=== PATIENT | male | born 1980 | race Caucasian/White ===

== ENCOUNTER 2019-09-01 15:09 | Emergency (ER) | payer MEDICARE, OTHER ==
[2019-09-01 15:34] VITALS: TEMP 97.6
--- NOTE | 2019-09-01 16:36 | ED ---
General Adult HPI - General Chief complaint: Psychiatric Symptoms Stated complaint: Mental Health Time Seen by Provider: 09/01/19 16:00 Source: patient, RN notes reviewed, old records reviewed Mode of arrival: ambulatory Limitations: no limitations - History of Present Illness Initial comments: This is a 39-year-old male who presents emergency Department complaining of being much more explosive and yelling at everyone. Patient states he takes care of 3 children of his and he was yelling at them today and he went over to his parents also started yelling at them. Parents noticed something was wrong and he told him he's been out of his medication for 5 days per patient states takes medication for his mood and something for his headaches but he doesn't know what it is. Patient thought he didn't need these meds so he didn't get them refilled 5 days ago. Patient states he is not homicidal or suicidal but he does agree cannot control his emotions and so he thinks he needs to be admitted to the hospital until he can get back on his medications. Patient denies any physical complaints today. Patient denies any headache patient denies numbness weakness. Patient denies any fever chills or cough. Patient denies any chest pain or difficulty breathing. - Related Data Allergies Allergy/AdvReac Type Severity Reaction Status Date / Time No Known Allergies Allergy Verified 09/01/19 15:30 Review of Systems ROS Statement: Those systems with pertinent positive or pertinent negative responses have been documented in the HPI. ROS Other: All systems not noted in ROS Statement are negative. Past Medical History Past Medical History: No Reported History History of Any Multi-Drug Resistant Organisms: None Reported Past Surgical History: No Surgical Hx Reported Past Psychological History: Anxiety, Bipolar, PTSD Smoking Status: Current every day smoker Past Alcohol Use History: None Reported Past Drug Use History: Marijuana General Exam - General Exam Comments Initial Comments: GENERAL: Patient is well-developed and well-nourished. Patient is nontoxic and well- hydrated and is in mild distress. ENT: Neck is soft and supple. No significant lymphadenopathy is noted. Oropharynx is clear. Moist mucous membranes. Neck has full range of motion without eliciting any pain. EYES: The sclera were anicteric and conjunctiva were pink and moist. Extraocular movements were intact and pupils were equal round and reactive to light. Eyelids were unremarkable. PULMONARY: Unlabored respirations. Good breath sounds bilaterally. No audible rales rhonchi or wheezing was noted. CARDIOVASCULAR: There is a regular rate and rhythm without any murmurs gallops or rubs. ABDOMEN: Soft and nontender with normal bowel sounds. SKIN: Skin is clear with no lesions or rashes and otherwise unremarkable. NEUROLOGIC: Patient is alert and oriented x3. Cranial nerves II through XII are grossly intact. Motor and sensory are also intact. Normal speech, volume and content. Symmetrical smile. MUSCULOSKELETAL: Normal extremities with adequate strength and full range of motion. LYMPHATICS: No significant lymphadenopathy is noted PSYCHIATRIC: The patient states he is having quite a few angry loud outbursts at different people. I suicidal homicidal ideations. Limitations: no limitations Course Vital Signs 09/01/19 15:30 Temperature 97.6 F Pulse Rate 80 Respiratory 18 Rate Blood Pressure 113/73 O2 Sat by Pulse 99 Oximetry Medical Decision Making - Medical Decision Making EPS went and evaluated the patient and developed a safety plan that the patient was in agreement with and he will follow-up as an outpatient. - Lab Data Lab Results 09/01/19 Range/Units 16:30 Urine Opiates Screen Not Detected (NotDetected) Ur Oxycodone Screen Not Detected (NotDetected) Urine Methadone Screen Not Detected (NotDetected) Ur Propoxyphene Screen Not Detected (NotDetected) Ur Barbiturates Screen Not Detected (NotDetected) U Tricyclic Antidepress Not Detected (NotDetected) Ur Phencyclidine Scrn Not Detected (NotDetected) Ur Amphetamines Screen Not Detected (NotDetected) U Methamphetamines Scrn Not Detected (NotDetected) U Benzodiazepines Scrn Not Detected (NotDetected) Urine Cocaine Screen Not Detected (NotDetected) U Marijuana (THC) Screen Detected H (NotDetected) Disposition Clinical Impression: Acute anxiety, Mood changes Disposition: HOME SELF-CARE Condition: Good Instructions (If sedation given, give patient instructions): Mood Disorders (ED), Anxiety (ED) Is patient prescribed a controlled substance at d/c from ED?: No Referrals: Sam Aponte MD [Primary Care Provider] - 1-2 days Time of Disposition: 17:40
[2019-09-01 16:52] LABS: Amphetamine Screen,Urine Not Detected (NotDetected); Barbiturate Screen,Urine Not Detected (NotDetected); Benzodiazepines Screen,Urine Not Detected (NotDetected); Cocaine Screen,Urine Not Detected (NotDetected); Methadone Screen, Urine Not Detected (NotDetected); Opiate Screen,Urine Not Detected (NotDetected); Oxycodone Screen, Urine Not Detected (NotDetected); Phencyclidine Screen,Urine Not Detected (NotDetected); Tricyclic Antidepressant,Urine Not Detected (NotDetected); Urn Cannabinoid Scrn Detected (NotDetected)
[2019-09-01 17:54] VITALS: BP 117/80; PULSE 74; RESP 16
== END 2019-09-01 17:54 | disposition home or self-care (01) ==
LOC: EC 15:09
DX: F41.9 Anxiety disorder, unspecified (principal); R45.850 Homicidal ideations; R45.851 Suicidal ideations; R45.86 Emotional lability; F17.200 Nicotine dependence, unspecified, uncomplicated; Z91.14 Patient's other noncompliance with medication regimen
CPT/HCPCS: 80306; 82075; 99284

== ENCOUNTER 2020-07-05 21:29 | Inpatient (IN) | payer MEDICARE, MEDICAID ==
[2020-07-05 22:25] LABS: Appearance,Urine Clear (Clear); Bilirubin,Urine Negative (Negative); Blood,Urine Negative (Negative); Color,Urine Yellow; Glucose,Urine (UA) Negative (Negative); Ketones,Urine Negative (Negative); Leukocyte Esterase,Urine Negative (Negative); Nitrite,Urine Negative (Negative); PH, Urine 7.5 (5.0-8.0); Protein,Urine Trace (Negative); Specific Gravity,Urine 1.019 (1.001-1.035); Urobilinogen,Urine <2.0 mg/dL (<2.0)
[2020-07-05 22:35] LABS: Amphetamine Screen,Urine Not Detected (NotDetected); Barbiturate Screen,Urine Not Detected (NotDetected); Benzodiazepines Screen,Urine Not Detected (NotDetected); Cocaine Screen,Urine Not Detected (NotDetected); Methadone Screen, Urine Not Detected (NotDetected); Opiate Screen,Urine Not Detected (NotDetected); Oxycodone Screen, Urine Not Detected (NotDetected); Phencyclidine Screen,Urine Not Detected (NotDetected); Tricyclic Antidepressant,Urine Not Detected (NotDetected); Urn Cannabinoid Scrn Detected (NotDetected)
--- NOTE | 2020-07-05 22:56 | ED ---
Psych HPI - General Source: patient Mode of arrival: ambulatory <Kaila Ladd - Last Filed: 07/05/20 22:52> <Geoff Couch - Last Filed: 07/06/20 04:38> - General Chief Complaint: Psychiatric Symptoms Stated Complaint: Mental Health Time Seen by Provider: 07/05/20 21:40 - History of Present Illness Initial Comments: 40yo male with hx of PTSD presenting for cc of suicidal ideation with plan. pt states that he has PTSD and has had increasing struggles with invasive thoughts and increasing suicidal ideations. pt states that he plans to cut himself. patient denies homicidal ideations. denies physical complaints. Patient denies any recent fever, chills, shortness of breath, chest pain, back pain, abdominal pain, nausea or vomiting, numbness or tingling, dysuria or hematuria, constipation or diarrhea, headaches or visual changes, or any other complaints. (Kaila Ladd) - Related Data Allergies Allergy/AdvReac Type Severity Reaction Status Date / Time No Known Allergies Allergy Verified 07/05/20 21:34 Review of Systems ROS Other: All systems not noted in ROS Statement are negative. <Kaila Ladd - Last Filed: 07/05/20 22:52> ROS Other: All systems not noted in ROS Statement are negative. <Geoff Couch - Last Filed: 07/06/20 04:38> ROS Statement: Those systems with pertinent positive or pertinent negative responses have been documented in the HPI. Past Medical History Past Medical History: No Reported History Additional Past Medical History / Comment(s): PTSD History of Any Multi-Drug Resistant Organisms: None Reported Past Surgical History: No Surgical Hx Reported Past Psychological History: Anxiety, Bipolar, PTSD Smoking Status: Current every day smoker Past Alcohol Use History: None Reported Past Drug Use History: Marijuana <Kaila Ladd - Last Filed: 07/05/20 22:52> General Exam Limitations: no limitations <Kaila Ladd - Last Filed: 07/05/20 22:52> - General Exam Comments Initial Comments: General: The patient is awake and alert, in no distress Eye: +3 mm pupils are equal, round and reactive to light, extra-ocular movements are intact. No nystagmus. There is normal conjunctiva bilaterally. No signs of icterus. Ears, nose, mouth and throat: There are moist mucous membranes and no oral lesions. Neck: The neck is supple, there is no tenderness or JVD. Cardiovascular: There is a regular rate and rhythm. No murmur, rub or gallop is appreciated. Respiratory: Lungs are clear to auscultation, respirations are non-labored, breath sounds are equal. No wheezes, stridor, rales, or rhonchi. Gastrointestinal: Soft, non-distended, non-tender abdomen without masses or organomegaly noted. There is no rebound or guarding present. Musculoskeletal: Normal ROM, no tenderness. Strength 5/5. Sensation intact. Radial pulses equal bilaterally 2+. Neurological: A&O x 3. CN II-XII intact grossly, There are no obvious motor or sensory deficits. Coordination appears grossly intact. Speech is normal. Skin: Skin is warm and dry and no rashes or lesions are noted. Psychiatric: Cooperative, very flat affect (Kaila Ladd) Course Vital Signs 07/05/20 21:29 Temperature 98.4 F Pulse Rate 91 Respiratory 20 Rate Blood Pressure 126/84 O2 Sat by Pulse 98 Oximetry Medical Decision Making <Geoff Couch - Last Filed: 07/06/20 04:38> - Medical Decision Making I saw this patient for purposes of filing the clinical certification. (Geoff Couch) - Lab Data Lab Results 07/05/20 Range/Units 22:15 Urine Color Yellow Urine Appearance Clear (Clear) Urine pH 7.5 (5.0-8.0) Ur Specific [place] 1.019 (1.001-1.035) Urine Protein Trace H (Negative) Urine Glucose (UA) Negative (Negative) Urine Ketones Negative (Negative) Urine Blood Negative (Negative) Urine Nitrite Negative (Negative) Urine Bilirubin Negative (Negative) Urine Urobilinogen <2.0 (<2.0) mg/dL Ur Leukocyte Esterase Negative (Negative) Urine Opiates Screen Not Detected (NotDetected) Ur Oxycodone Screen Not Detected (NotDetected) Urine Methadone Screen Not Detected (NotDetected) Ur Propoxyphene Screen Not Detected (NotDetected) Ur Barbiturates Screen Not Detected (NotDetected) U Tricyclic Antidepress Not Detected (NotDetected) Ur Phencyclidine Scrn Not Detected (NotDetected) Ur Amphetamines Screen Not Detected (NotDetected) U Methamphetamines Scrn Not Detected (NotDetected) U Benzodiazepines Scrn Not Detected (NotDetected) Urine Cocaine Screen Not Detected (NotDetected) U Marijuana (THC) Screen Detected H (NotDetected) Disposition <Kaila Ladd - Last Filed: 07/05/20 22:52> Is patient prescribed a controlled substance at d/c from ED?: No <Geoff Couch - Last Filed: 07/06/20 04:38> Clinical Impression: Mood disorder Disposition: ADMITTED IP TO THIS HOSP Condition: Fair Referrals: Sam Aponte MD [Primary Care Provider] - 1-2 days
[2020-07-06 04:41] LABS: Basophils # (A) 0.1 k/uL (0-0.2); Basophils % (A) 1 %; Eosinophils # (A) 0.1 k/uL (0-0.7); Eosinophils % (A) 2 %; HGB 16.2 gm/dL (13.0-17.5); Lymphocytes # (A) 3.2 k/uL (1.0-4.8); Lymphocytes % (A) 43 %; MCHC 34.5 g/dL (31.0-37.0); MCV 89.8 fL (80.0-100.0); Mean Platelet Volume 7.1; Monocytes # (A) 0.5 k/uL (0-1.0); Monocytes % (A) 7 %; Neutrophils # (A) 3.3 k/uL (1.3-7.7); Neutrophils % (A) 45 %; Platelet Count 324 k/uL (150-450); RBC 5.23 m/uL (4.30-5.90); RDW 11.7 % (11.5-15.5); WBC 7.4 k/uL (3.8-10.6)
[2020-07-06 04:46] LABS: ALT 20 U/L (4-49); AST 23 U/L (17-59); African American GFR (CKD) >90 (>60 ml/min/1.73 sqM); Albumin 4.2 g/dL (3.5-5.0); Alkaline Phosphatase 47 U/L (38-126); Anion Gap 5 mmol/L; Blood Urea Nitrogen 16 mg/dL (9-20); Calcium 9.3 mg/dL (8.4-10.2); Carbon Dioxide 29 mmol/L (22-30); Chloride 104 mmol/L (98-107); Glucose 98 mg/dL (74-99); Non-African American GFR(CKD) >90 (>60 ml/min/1.73 sqM); Sodium 138 mmol/L (137-145); Total Bilirubin 0.7 mg/dL (0.2-1.3); Total Protein 7.3 g/dL (6.3-8.2)
[2020-07-06] MEDS ORDERED: MAG HYDROX/AL HYDROX/SIMETH 30 ML CUP PO PRN (08:44)
[2020-07-06] MEDS ORDERED: ACETAMINOPHEN TAB 325 MG TAB PO PRN (08:44)
[2020-07-06] MEDS ORDERED: MAGNESIUM HYDROXIDE 2,400 MG/10 ML CUP PO PRN (08:44)
[2020-07-06] MEDS ORDERED: LORazepam 1 MG TAB PO PRN (08:44)
[2020-07-06] MEDS ORDERED: HALOPERIDOL LACTATE 5 MG/ML 1 ML VIAL IM PRN (08:47)
[2020-07-06] MEDS ORDERED: LORazepam 2 MG/ML INJ IM PRN (08:47)
[2020-07-06] MEDS: NICOTINE 14MG/24HR PATCH TRANSDERM SCH (11:05)
--- NOTE | 2020-07-06 12:06 | P.HP ---
Psychiatric H&P - . H&P Date: 07/06/20 History & Physical: IDENTIFYING DATA: He is 40-year-old male admitted to the psychiatric unit voluntarily with complaints of depression and suicidal ideation. HISTORY OF PRESENT ILLNESS: He was mute during our interview. He gestured that he either had thoughts or attempted to cut his wrist in a suicide attempt. In response to my question about how he is feeling he shook his head and pointed to his chest indicating that he was an well. According to the medical record he presented to the ER with complaints of suicidal ideation with plan to slit his wrists. He told the EPS nurse that he had increasing suicidal thoughts for several days prior to admission. He recently gave up guardianship of his children to a cousin who allegedly will not allow him visitation He also admitted to experiencing homicidal thoughts towards a cousin. PAST PSYCHIATRIC HISTORY: According to record she has [facility] The last was approximately 6 months ago. PAST MEDICAL HISTORY: He denied a history of major medical problems to the emergency room physician. ALLERGIES: NO KNOWN DRUG ALLERGIES SUBSTANCE USE HISTORY: Fareed rodriguez EPS nurse that his history of alcohol use problems but quit drinking 6 months ago. He attends Alcoholics Anonymous. FAMILY PSYCHIATRIC/SUBSTANCE USE HISTORY: Unknown LEGAL HISTORY: Unknown SOCIAL HISTORY: He lives alone in [facility]. He has 3 children who she gave up rights. He was in the [employer] and served 2 tours in [place]. He is 90% disabled [facility] the [facility]. MENTAL STATUS EXAM: He presented as a bald and casually groomed 40-year-old male who did not make eye contact and did not speak. He had no distinguishing features or prominent physical abnormalities. He had a flat facial expression. He had marked psychomotor retardation. His affect was depressed and not reactive. He gestured that he is continuing to experience suicidal thoughts. He did not appear to be responding to internal stimuli. I was unable to evaluate his thought process due to the marked paucity of speech. STRENGTHS: Stable income, stable housing WEAKNESSES: Chronic mental illness, recent loss of children IMPRESSION: Is a 40-year-old male who was difficult to interview. He refused to talk and gestured in response to questions. Current to record he presented with suicidal ideation including thoughts to cut his wri st. Proximal stressor appears to be the loss of rights to his 3 children. He has a history of mental illness and treatment of [facility] illness [facility] the [facility]. He should be treated inpatient basis with combination of psychopharmacology and multimodal therapy. PRINCIPLE DIAGNOSIS: Major depressive disorder severe recurrent, rule out with psychotic features, rule out bipolar illness current episode depressed, history of PTSD, history of alcohol use disorder RECOMMENDATION: Admitted to the psychiatric unit. Safety precautions. Consult medicine for initial physical exam and medical history. 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 Resume Prozac and olanzapine beginning with Prozac 20 mg daily and olanzapine 10 mg at bedtime. Ativan and/or Haldol by mouth or IM for agitation or aggression. Encourage participation in therapeutic groups to activities. Evaluate clinical status response to treatment daily basis. Allergies Allergy/AdvReac Type Severity Reaction Status Date / Time No Known Allergies Allergy Verified 07/06/20 10:16 Vital Signs Temp 97.7 F 07/06/20 09:15 Pulse 80 07/06/20 09:15 Resp 18 07/06/20 09:15 BP 109/74 07/06/20 09:15 Pulse Ox 96 07/06/20 09:15 Intake & Output 07/05/20 07/06/20 07/06/20 18:59 06:59 18:59 Weight 81.647 kg 89.6 kg Laboratory Last Values WBC 7.4 k/uL (3.8-10.6) 07/06/20 04:23 RBC 5.23 m/uL (4.30-5.90) 07/06/20 04:23 Hgb 16.2 gm/dL (13.0-17.5) 07/06/20 04:23 Hct 47.0 % (39.0-53.0) 07/06/20 04:23 MCV 89.8 fL (80.0-100.0) 07/06/20 04:23 MCH 31.0 pg (25.0-35.0) 07/06/20 04:23 MCHC 34.5 g/dL (31.0-37.0) 07/06/20 04:23 RDW 11.7 % (11.5-15.5) 07/06/20 04:23 Plt Count 324 k/uL (150-450) 07/06/20 04:23 MPV 7.1 07/06/20 04:23 Neutrophils % 45 % 07/06/20 04:23 Lymphocytes % 43 % 07/06/20 04:23 Monocytes % 7 % 07/06/20 04:23 Eosinophils % 2 % 07/06/20 04:23 Basophils % 1 % 07/06/20 04:23 Neutrophils # 3.3 k/uL (1.3-7.7) 07/06/20 04:23 Lymphocytes # 3.2 k/uL (1.0-4.8) 07/06/20 04:23 Monocytes # 0.5 k/uL (0-1.0) 07/06/20 04:23 Eosinophils # 0.1 k/uL (0-0.7) 07/06/20 04:23 Basophils # 0.1 k/uL (0-0.2) 07/06/20 04:23 Sodium 138 mmol/L (137-145) 07/06/20 04:23 Potassium 4.0 mmol/L (3.5-5.1) 07/06/20 04:23 Chloride 104 mmol/L (98-107) 07/06/20 04:23 Carbon Dioxide 29 mmol/L (22-30) 07/06/20 04:23 Anion Gap 5 mmol/L 07/06/20 04:23 BUN 16 mg/dL (9-20) 07/06/20 04:23 Creatinine 0.95 mg/dL (0.66-1.25) 07/06/20 04:23 Est GFR (CKD-EPI)AfAm >90 (>60 ml/min/1.73 sqM) 07/06/20 04:23 Est GFR (CKD-EPI)NonAf >90 (>60 ml/min/1.73 sqM) 07/06/20 04:23 Glucose 98 mg/dL (74-99) 07/06/20 04:23 Calcium 9.3 mg/dL (8.4-10.2) 07/06/20 04:23 Total Bilirubin 0.7 mg/dL (0.2-1.3) 07/06/20 04:23 AST 23 U/L (17-59) 07/06/20 04:23 ALT 20 U/L (4-49) 07/06/20 04:23 Alkaline Phosphatase 47 U/L (38-126) 07/06/20 04:23 Total Protein 7.3 g/dL (6.3-8.2) 07/06/20 04:23 Albumin 4.2 g/dL (3.5-5.0) 07/06/20 04:23 Urine Color Yellow 07/05/20 22:15 Urine Appearance Clear (Clear) 07/05/20 22:15 Urine pH 7.5 (5.0-8.0) 07/05/20 22:15 Ur Specific [place] 1.019 (1.001-1.035) 07/05/20 22:15 Urine Protein Trace (Negative) H 07/05/20 22:15 Urine Glucose (UA) Negative (Negative) 07/05/20 22:15 Urine Ketones Negative (Negative) 07/05/20 22:15 Urine Blood Negative (Negative) 07/05/20 22:15 Urine Nitrite Negative (Negative) 07/05/20 22:15 Urine Bilirubin Negative (Negative) 07/05/20 22:15 Urine Urobilinogen <2.0 mg/dL (<2.0) 07/05/20 22:15 Ur Leukocyte Esterase Negative (Negative) 07/05/20 22:15 Urine Opiates Screen Not Detected (NotDetected) 07/05/20 22:15 Ur Oxycodone Screen Not Detected (NotDetected) 07/05/20 22:15 Urine Methadone Screen Not Detected (NotDetected) 07/05/20 22:15 Ur Propoxyphene Screen Not Detected (NotDetected) 07/05/20 22:15 Ur Barbiturates Screen Not Detected (NotDetected) 07/05/20 22:15 U Tricyclic Antidepress Not Detected (NotDetected) 07/05/20 22:15 Ur Phencyclidine Scrn Not Detected (NotDetected) 07/05/20 22:15 Ur Amphetamines Screen Not Detected (NotDetected) 07/05/20 22:15 U Methamphetamines Scrn Not Detected (NotDetected) 07/05/20 22:15 U Benzodiazepines Scrn Not Detected (NotDetected) 07/05/20 22:15 Urine Cocaine Screen Not Detected (NotDetected) 07/05/20 22:15 U Marijuana (THC) Screen Detected (NotDetected) H 07/05/20 22:15 Coronavirus (PCR) Not Detected (Not Detectd) 07/06/20 04:23 07/06/20 11:00 07/06/20 11:38 07/06/20 12:05
--- NOTE | 2020-07-06 12:09 | P.HPMEDMHU ---
History of Present Illness H&P Date: 07/06/20 Chief Complaint: Medical management This is a 40-year-old male who was admitted into the hospital with suicidal ideation and thought patient has PTSD, denies any homicidal ideation, past medical history essentially unremarkable except for bipolar disorder generalized anxiety disorder and PTSD, patient does use marijuana on a on a regular basis and also smokes 1 pack per day, chemistry reviewed along with CBC within normal limit urine is positive for marijuana, covid 19 is negative Review of Systems All systems: negative Past Medical History Past Medical History: No Reported History Additional Past Medical History / Comment(s): PTSD History of Any Multi-Drug Resistant Organisms: None Reported Past Surgical History: No Surgical Hx Reported Smoking Status: Current every day smoker Medications and Allergies Home Medications Medication Instructions Recorded Confirmed Type Atorvastatin [Lipitor] 20 mg PO HS 07/06/20 07/06/20 History FLUoxetine HCL [PROzac] 10 mg PO DAILY 07/06/20 07/06/20 History [place] Carbonate [Lithobid] 600 mg PO HS 07/06/20 07/06/20 History OLANZapine [ZyPREXA] 10 mg PO HS 07/06/20 07/06/20 History Prazosin [Minipress] 1 mg PO HS 07/06/20 07/06/20 History Allergies Allergy/AdvReac Type Severity Reaction Status Date / Time No Known Allergies Allergy Verified 07/06/20 10:16 Physical Exam Vitals: Vital Signs Temp Pulse Pulse Resp BP BP Pulse Ox 07/06/20 09:15 97.7 F 80 18 109/74 96 07/06/20 09:00 97.7 F 80 18 109/74 96 07/06/20 06:00 97.7 F 73 18 107/64 96 07/05/20 21:29 98.4 F 91 20 126/84 98 Intake and Output 07/05/20 07/06/20 07/06/20 22:59 06:59 14:59 Other: Weight 81.647 kg 89.6 kg - Constitutional General appearance: average body habitus, disheveled - EENT Eyes: EOMI, PERRLA ENT: normal oropharynx Ears: bilateral: normal - Neck Neck: normal ROM Carotids: bilateral: upstroke normal Thyroid: bilateral: normal size - Respiratory Respiratory: bilateral: CTA - Cardiovascular Rhythm: regular Heart sounds: normal: S1, S2 - Gastrointestinal General gastrointestinal: soft - Neurologic Neurologic: CNII-XII intact - Musculoskeletal Musculoskeletal: gait normal, strength equal bilaterally - Psychiatric Psychiatric: A&O x's 3, appropriate affect, intact judgment & insight Cranial Nerve Examination - Cranial Nerves Cranial Nerve I- Olfactory: Intact Cranial Nerve II- Optic: Intact Cranial Nerve III- Oculomotor: Intact Cranial Nerve IV- Trochlear: Intact Cranial Nerve V- Trigeminal: Intact Cranial Nerve - Abducens: Intact Cranial Nerve VII- Facial: Intact Cranial Nerve VIII- Auditory: Intact Cranial Nerve IX- Glossopharyngeal: Intact Cranial Nerve X- Vagus: Intact Cranial Nerve XI- Accessory: Intact Cranial Nerve XII- Hypoglossal: Intact Results CBC & Chem 7: 07/06/20 04:23 07/06/20 04:23 Labs: Abnormal Lab Results - Last 24 Hours (Table) 07/05/20 Range/Units 22:15 Urine Protein Trace H (Negative) U Marijuana (THC) Screen Detected H (NotDetected) Assessment and Plan Assessment: Suicidal ideation and thought Major depression Smoking and nicotine abuse PTSD Generalized anxiety disorder
[2020-07-06] MEDS: OLANZapine 10 MG TAB PO SCH (21:34)
[2020-07-07] MEDS: FLUoxetine HCL 20 MG CAP PO SCH (08:40)
[2020-07-07] MEDS: NICOTINE 14MG/24HR PATCH TRANSDERM SCH (08:44)
--- NOTE | 2020-07-07 10:59 | P.PN ---
Progress Note - Text Progress Note Date: 07/07/20 Clinical Problems: Major depressive disorder severe recurrent, rule out with psychotic features, rule out bipolar illness current episode depressed, history of PTSD, history of alcohol use disorder Interim history: I reviewed the medical record, attempted to interview the patient and discussed his treatment and treatment plan during team meeting. He remains mute. He answers questions by shaking his head, nodding his head or gesturing with his hands. He shook his head indicating no when I asked about side effects to his current medications. He spends his time in bed coming out only for meals. He does not attend therapeutic groups or activities. He slept 9 hours last night. He is posed no management problems had no episodes of behavioral dyscontrol. Medical evaluation appreciated. Mental status exam: He presented as a casually groomed old 40-year-old male who is laying in bed. He sat up and appeared to attend to the interview. He had psychomotor slowing. He would not speak. His affect was depressed and not reactive. In response to questions about suicidality or homicidality he stared blankly. He did not appear paranoid or suspicious. I could not evaluate his thought process due to the poverty of speech. He did not appear to be responding to internal stimuli. Assessment: He remains mute but compliant with treatment. He appears moderately depressed and unchanged from admission. Plan: Continue inpatient treatment. Safety precautions. Continue Prozac 20 mg daily and olanzapine 10 mg at bedtime; titrate according to clinical response and tolerance. Obtain collateral information from family. Encourage participation in therapeutic groups and activities. Evaluate clinical status response to treatment daily basis.
[2020-07-07 17:53] LABS: Hemoglobin A1C 5.3 % (4.0-6.0)
[2020-07-07] MEDS: OLANZapine 10 MG TAB PO SCH (21:28)
[2020-07-08] MEDS: NICOTINE 14MG/24HR PATCH TRANSDERM SCH ×2 (09:12→09:15)
[2020-07-08] MEDS: FLUoxetine HCL 20 MG CAP PO SCH (09:12)
--- NOTE | 2020-07-08 12:05 | P.PN ---
Progress Note - Text Progress Note Date: 07/08/20 Clinical Problems: Major depressive disorder severe recurrent, rule out with psychotic features, rule out bipolar illness current episode depressed, history of PTSD, history of alcohol use disorder Interim history: I reviewed the medical record, attempted to interview the patient and discussed his treatment and treatment plan during team meeting. He continues to refuse to talk. He answers questions by nodding or shaking his head or gesturing with his hands. He appears frustrated when I am unable to understand his hand gestures. He spends his time in bed, not only for meals and medications. He is compliant with prescribed medications. He is posed no management problem and has had no episodes of behavioral dyscontrol. Mental status exam: He presented as a casually groomed old 40-year-old male who is laying in bed. He sat up and appeared to attend to the interview. He had psychomotor slowing. He would not speak. His affect was depressed and not reactive. He did not answer questions about suicidality or homicidality. He he was guarded. I could not evaluate his thought process due to the poverty of speech. He did not appear to be responding to internal stimuli. Assessment: He remains mute but compliant with treatment. He appears moderately depressed and unchanged from admission. Plan: Continue inpatient treatment. Safety precautions. Continue Prozac 20 mg daily and increase olanzapine to 15 mg at bedtime; titrate according to clinical response and tolerance. Obtain collateral information from family. Encourage participation in therapeutic groups and activities. Evaluate clinical status response to treatment daily basis.
[2020-07-08] MEDS: OLANZapine 5 MG TAB PO SCH (20:30)
[2020-07-09] MEDS: FLUoxetine HCL 20 MG CAP PO SCH (08:07)
[2020-07-09] MEDS: NICOTINE 14MG/24HR PATCH TRANSDERM SCH (08:07)
--- NOTE | 2020-07-09 11:15 | P.PN ---
Progress Note - Text Progress Note Date: 07/09/20 Clinical Problems: Major depressive disorder severe recurrent, rule out with psychotic features, rule out bipolar illness current episode depressed, history of PTSD, history of alcohol use disorder Interim history: I reviewed the medical record, attempted to interview the patient and discussed his treatment and treatment plan during team meeting. He continues to refuse to speak. He answers questions by nodding or shaking his head or gesturing with his hands as though he were communicating in sign language. I expressed my concern about him spending so much time in bed. He stated blankly and had a concerned look on his face. He spends his time in bed coming out only for meals and medications. He is compliant with prescribed medications. He is posed no management problem and has had no episodes of behavioral dyscontrol. Mental status exam: He presented as a casually groomed old 40-year-old male who is laying in bed. He sat up and appeared to attend to the interview. He had psychomotor slowing. He would not speak. His affect was depressed and not reactive. He did not answer questions about suicidality or homicidality. He he was guarded. I could not evaluate his thought process due to the poverty of speech. He did not appear to be responding to internal stimuli. Assessment: He remains mute but compliant with treatment. He appears moderately depressed and unchanged from admission. Plan: Continue inpatient treatment. Safety precautions. Continue Prozac 20 mg daily and increase olanzapine to 15 mg at bedtime; titrate according to clinical response and tolerance. Obtain collateral information from family. Encourage participation in therapeutic groups and activities. Evaluate clinical status response to treatment daily basis.
[2020-07-09] MEDS: OLANZapine 5 MG TAB PO SCH (20:58)
[2020-07-10] MEDS: FLUoxetine HCL 20 MG CAP PO SCH (08:33)
[2020-07-10] MEDS: NICOTINE 14MG/24HR PATCH TRANSDERM SCH (08:33)
[2020-07-10] MEDS ORDERED: FLUoxetine HCL 20 MG CAP PO ONE (09:00)
--- NOTE | 2020-07-10 09:23 | P.PN ---
Progress Note - Text Progress Note Date: 07/10/20 Clinical Problems: Major depressive disorder severe recurrent, rule out with psychotic features, rule out bipolar illness current episode depressed, history of PTSD, history of alcohol use disorder Interim history: I reviewed the medical record, attempted to interview the patient and discussed his treatment and treatment plan during team meeting. He again refused to speak with me. He responded to questions that could be answered by nodding or shaking his head but stared blankly when I asked open- ended question. He stared blankly when I mentioned that he was speaking in the emergency room. The social work was able to speak with his mother. His mother informed social services aide spent the patient's been admitted frequently to [facility] over the past year for a diagnosis of a schizoaffective disorder. He refuses to take his medications at home. She notes that he has problems with authority and becomes angry easily. He has been drinking alcohol and smoking marijuana. He spends his time in bed coming out only for meals and medications. He is compliant with prescribed medications. He is posed no management problem and has had no episodes of behavioral dyscontrol. Mental status exam: He presented as a casually groomed old 40-year-old male who is laying in bed. He sat up and appeared to attend to the interview. He had psychomotor slowing. He would not speak. His affect was depressed and not reactive. He did not answer questions about suicidality or homicidality. He he was guarded. I could not evaluate his thought process due to the poverty of speech. He did not appear to be responding to internal stimuli. Assessment: He remains mute but compliant with treatment. He appears moderately depressed and unchanged from admission. Plan: Continue inpatient treatment. Safety precautions. Increase Prozac to 40 mg daily and olanzapine to 20 mg at bedtime. Consider augmentation with lithium. Obtain collateral information from family. Encourage participation in therapeutic groups and activities. Evaluate clinical status response to treatment daily basis.
[2020-07-10] MEDS: OLANZapine 10 MG TAB PO SCH (21:16)
[2020-07-11] MEDS: FLUoxetine HCL 20 MG CAP PO SCH (08:17)
[2020-07-11] MEDS: NICOTINE 14MG/24HR PATCH TRANSDERM SCH (08:17)
--- NOTE | 2020-07-11 18:20 | PN ---
PROGRESS NOTE DATE OF SERVICE: 07/11/2020 CHIEF COMPLAINT: The patient had depression and posttraumatic issues. He had increasing thoughts of suicide with a plan to cut his wrists. INTERVAL HISTORY: The patient continues pretty much in the same level of mood and function as he has been in. He spent almost all of his time yesterday in his room. He will come out for meals. He has been compliant with care. He interacts only minimally with staff and verbalizes very little. Apparently, he slept fairly well last night. Today he has continued to be in his room. He does not attend groups. When I talked to him today he essentially had nothing specific to say. He would respond with one word answers that he had no complaints, that his medicines were okay, that he felt that perhaps medicines were helping and he did not identify any side effects or concerns relating to his medications. When asked if he had any questions or concerns about his treatment his response was "no." He appears to tolerate his psychotropic medications. MENTAL STATUS: Patient was in his room lying in bed. He sat slightly up. I talked to him when he was in his room. He gave fair eye contact. Psychomotor activity was slowed. He responded with one-word responses to just basic questions where he could give yes/no answers. His affect was flat, mood reserved. It was difficult to assess his level of distress. It was difficult to assess for thought disorder or thoughts of harm. ASSESSMENT: I will continue the current diagnosis and treatment plan. Patient will continue Prozac 40 mg a day and Zyprexa 20 mg at bedtime. I briefly discussed his medications though it was clear he did not find any benefit of engaging in the conversation. We will continue to focus on stabilization and discharge planning. MMODL / IJN: [id number] /
[2020-07-11] MEDS: OLANZapine 10 MG TAB PO SCH (19:57)
[2020-07-12] MEDS: FLUoxetine HCL 20 MG CAP PO SCH (08:13)
[2020-07-12] MEDS: NICOTINE 14MG/24HR PATCH TRANSDERM SCH (08:14)
--- NOTE | 2020-07-12 11:36 | PN ---
PROGRESS NOTE DATE OF SERVICE: 07/12/2020 CHIEF COMPLAINT: The patient had depression and posttraumatic issues. He had increasing thoughts of suicide with a plan to cut his wrists. INTERVAL HISTORY: Patient has continued pretty much the same. He had a quiet day yesterday. Mostly he stayed in his room in bed. He does not attend groups. He will respond minimally to staff. He has been taking his medication. He presumably slept excessively yesterday. He slept last night. Today when I saw him again, he was in his room. He did not have anything to say one way or another. He denied having any problems or concerns. He was vague about whether his medicines help him. He appears to tolerate his psychotropic medications. MENTAL STATUS: Patient was in bed. He did not come up to the office when called. He sat up in bed when I talked to him. He gave fair eye contact. He did not respond with any verbal answers. He just shook his head and seemed to report that he was having no problems or concerns. His affect was flat. Mood reserved. It was difficult to assess anything further. ASSESSMENT: I will continue the current diagnosis and treatment plan. I will continue psychotropic medications the same. I will defer to Dr. Ellis in regard to any additional medication adjustments. He may need to be titrated up further on Zyprexa. We will focus on stabilization and discharge planning. MMOSWALD / SUMEET: [id number] /
[2020-07-12] MEDS: OLANZapine 10 MG TAB PO SCH (21:15)
[2020-07-13] MEDS: FLUoxetine HCL 20 MG CAP PO SCH (08:54)
[2020-07-13] MEDS: NICOTINE 14MG/24HR PATCH TRANSDERM SCH (08:55)
--- NOTE | 2020-07-13 13:13 | P.PN ---
Progress Note - Text Progress Note Date: 07/13/20 Clinical Problems: Elective mutism, schizoaffective disorder depressed type, history of PTSD, history of alcohol use disorder Interim history: I reviewed the medical record, attempted to interview the patient and discussed his treatment and treatment plan during team meeting. He again refused to speak with me. He responded to questions that could be answered by nodding or shaking his head but stared blankly when I asked open- ended question. He came out of his room in the afternoon and sat outside of the activity group. He would not make eye contact with me in the hallway and would not answer my greetings. He spends his time in bed coming out only for meals and medications. He is compliant with prescribed medications. He is posed no management problem and has had no episodes of behavioral dyscontrol. Mental status exam: He presented as a casually groomed old 40-year-old male who is laying in bed. He sat up and appeared to attend to the interview. He had psychomotor slowing. He would not speak. His affect was depressed and not reactive. He did not answer questions about suicidality or homicidality. He he was guarded. I could not evaluate his thought process due to the poverty of speech. He did not appear to be responding to internal stimuli. Assessment: He remains mute but compliant with treatment. He appears moderately depressed and unchanged from admission. Plan: Continue inpatient treatment. Safety precautions. Continue Prozac to 40 mg daily and olanzapine to 20 mg at bedtime. Consider augmentation with lithium. Consider trial of Haldol if his condition does not improve with 20 mg of olanzapine. Obtain collateral information from family. Encourage participation in therapeutic groups and activities. Evaluate clinical status response to treatment daily basis.
[2020-07-13] MEDS: OLANZapine 10 MG TAB PO SCH (21:20)
[2020-07-14] MEDS: FLUoxetine HCL 20 MG CAP PO SCH (08:33)
--- NOTE | 2020-07-14 11:17 | P.PN ---
Progress Note - Text Progress Note Date: 07/14/20 Clinical Problems: Elective mutism, schizoaffective disorder depressed type, history of PTSD, history of alcohol use disorder Interim history: I reviewed the medical record, attempted to interview the patient and discussed his treatment and treatment plan during team meeting. He continues to refuse to speak. As during prior encounters he nods or shakes his head or gestures with his hands as though he were speaking sign language. When I asked him why he is not speaking he circled his hand along his chest and his abdomen as though he is indicating internal turmoil. I explained my concern that he does not appear to be improving and recommended a change in medication. He agreed to taper and discontinue Zyprexa and begin a trial of Haldol. He spends his time in bed coming out only for meals and medications. He is compliant with prescribed medications. He is posed no management problem and has had no episodes of behavioral dyscontrol. Mental status exam: He presented as a casually groomed old 40-year-old male who is laying in bed. He sat up and appeared to attend to the interview. He had psychomotor slowing. He would not speak. His affect was depressed and not reactive. He did not answer questions about suicidality or homicidality. He he was guarded. I could not evaluate his thought process due to the poverty of speech. He did not appear to be responding to internal stimuli. Assessment: He remains mute but compliant with treatment. Plan: Continue inpatient treatment. Safety precautions. Continue Prozac to 40 mg daily. Taper then discontinue olanzapine and begin Haldol 2 mg at bedtime and titrated according to clinical response and tolerance. Consider augmentation with lithium. Obtain collateral information from family. Encourage participation in therapeutic groups and activities. Evaluate clinical status response to treatment daily basis.
[2020-07-14] MEDS ORDERED: OLANZapine 5 MG TAB PO SCH (21:00)
[2020-07-15] MEDS: FLUoxetine HCL 20 MG CAP PO SCH (08:08)
--- NOTE | 2020-07-15 11:07 | P.PN ---
Progress Note - Text Progress Note Date: 07/15/20 Clinical Problems: Elective mutism, schizoaffective disorder depressed type, history of PTSD, history of alcohol use disorder Interim history: I reviewed the medical record, attempted to interview the patient and discussed his treatment and treatment plan during team meeting. He continues to refuse to speak. As during prior encounters he nods or shakes his head or gestures with his hands as though he were speaking sign language. I asked him why he doesn't want to speak today he shook his head to indicate "no". He denied side effects to the initial dose of Haldol. I explained that we will be gradually increasing the dose He spends his time in bed coming out only for meals and medications. He is compliant with prescribed medications. He is posed no management problem and has had no episodes of behavioral dyscontrol. Mental status exam: He presented as a casually groomed old 40-year-old male who is laying in bed. He sat up and appeared to attend to the interview. He had psychomotor slowing. He would not speak. His affect was depressed and not reactive. He did not answer questions about suicidality or homicidality. He he was guarded. I could not evaluate his thought process due to the poverty of speech. He did not appear to be responding to internal stimuli. Assessment: He remains mute but compliant with treatment. Plan: Continue inpatient treatment. Safety precautions. Continue Prozac to 40 mg daily. Continue to taper olanzapine. Continue Haldol 2 mg at bedtime and titrated according to clinical response and tolerance. Consider augmentation with lithium. Obtain collateral information from family. Encourage participation in therapeutic groups and activities. Evaluate clinical status response to treatment daily basis.
[2020-07-15 14:32] VITALS: BMI 31.2
[2020-07-15] MEDS: OLANZapine 10 MG TAB PO SCH (20:57)
[2020-07-16] MEDS: FLUoxetine HCL 20 MG CAP PO SCH (08:28)
--- NOTE | 2020-07-16 11:27 | P.PN ---
Progress Note - Text Progress Note Date: 07/16/20 Clinical Problems: Elective mutism, schizoaffective disorder depressed type, history of PTSD, history of alcohol use disorder Interim history: I reviewed the medical record, attempted to interview the patient and discussed his treatment and treatment plan during team meeting. He continues to refuse to speak. As during prior encounters he nods or shakes his head or gestures with his hands as though he were speaking sign language. When I asked him why he doesn't want to speak he made a gesture where circleed his hand over his chest and abdomen. He denied side effects to the initial dose of Haldol. He spends his time in bed coming out only for meals and medications. He is compliant with prescribed medications. He is posed no management problem and has had no episodes of behavioral dyscontrol. Mental status exam: He presented as a casually groomed old 40-year-old male who is laying in bed. He sat up and appeared to attend to the interview. He had psychomotor slowing. He would not speak. His affect was depressed and not reactive. He did not answer questions about suicidality or homicidality. He he was guarded. I could not evaluate his thought process due to the poverty of speech. He did not appear to be responding to internal stimuli. Assessment: He remains mute but compliant with treatment. Plan: Continue inpatient treatment. Safety precautions. Continue Prozac to 40 mg daily. Continue to taper olanzapine. Increase Haldol to 5 mg at bedtime and titrated according to clinical response and tolerance. He shows a response to the Haldol consider transitioning to Haldol decanoate. Consider augmentation with lithium. Encourage participation in therapeutic groups and activities. Evaluate clinical status response to treatment daily basis.
[2020-07-16] MEDS: haloperidoL 5 MG TAB PO SCH (20:49)
[2020-07-16] MEDS: OLANZapine 10 MG TAB PO SCH (20:49)
[2020-07-17] MEDS: FLUoxetine HCL 20 MG CAP PO SCH (08:21)
--- NOTE | 2020-07-17 10:53 | P.PN ---
Progress Note - Text Progress Note Date: 07/17/20 Clinical Problems: Elective mutism, schizoaffective disorder depressed type, history of PTSD, history of alcohol use disorder Interim history: I reviewed the medical record, attempted to interview the patient and discussed his treatment and treatment plan during team meeting. Again, he refused to speak. He answered questions with signs and gestures. I clinically depressed about one gesture meant that he was depressed. In response asked to see depressed about and he made a series of gestures. He appeared frustrated when I told him that I did not understand the gesture he was making Nursing reports that he is coming out of his room more often. This morning I saw him sitting in the patient lounge. He does not attend therapeutic groups or activities. He does not interact with staff or peers. He is compliant with prescribed medications. He is posed no management problem and has had no episodes of behavioral dyscontrol. Mental status exam: He presented as a casually groomed old 40-year-old male who is laying in bed. He sat up and appeared to attend to the interview. He had psychomotor slowing. He would not speak. His affect was depressed and not reactive. He did not answer questions about suicidality or homicidality. He he was guarded. I could not evaluate his thought process due to the poverty of speech. He did not appear to be responding to internal stimuli. Assessment: He remains mute but compliant with medications. Plan: Continue inpatient treatment. Safety precautions. Continue Prozac to 40 mg daily. Discontinue olanzapine. Continue Haldol to 5 mg at bedtime and titrated according to clinical response and tolerance. He shows a response to the Haldol consider transitioning to Haldol decanoate. Consider augmentation with lithium. Encourage participation in therapeutic groups and activities. Evaluate clinical status response to treatment daily basis.
[2020-07-17] MEDS: haloperidoL 5 MG TAB PO SCH (20:53)
[2020-07-17] MEDS ORDERED: OLANZapine 5 MG TAB PO SCH (21:00)
[2020-07-18] MEDS: FLUoxetine HCL 20 MG CAP PO SCH (09:05)
--- NOTE | 2020-07-18 14:09 | P.PN ---
Progress Note - Text Progress Note Date: 07/18/20 Clinical Problems: Elective mutism, schizoaffective disorder depressed type, history of PTSD, history of alcohol use disorder Interim history: I reviewed the medical record and interviewed the patient. She spoke today; the first time since admission to the unit. He requested transfer to a [facility]. He stated that he receives his psychiatric care through the [facility]. I asked why he had been speaking and he replied that he has been troubled with "negative thoughts". He would not or could not explain what he meant by negative thoughts. In response to probing questions replied "a lot of things ... Some are bad." He feels that he is "better" and that he is having fewer "negative thoughts." He remains compliant with medication but does not attend therapeutic groups or activities. He does not interact with staff or other peers. Mental status exam: He presented as a casually groomed old 40-year-old male who is laying in bed. He sat up and attended to the interview. He had psychomotor slowing. His speech was slow with decreased prosody. His affect was depressed and unreactive. He would not answer questions about suicidal thoughts or wishes. He feels hopeless and helpless. He did not express clear ideas reference or paranoid ideation. Her thinking was concrete and his associations appeared goal directed. He had poverty of content. He denied hallucinations and did not appear to be responding to internal stimuli. Assessment: He is shown an initial response to treatment but remains withdrawn and appears depressed. Plan: Continue inpatient treatment. Safety precautions. Continue Prozac to 40 mg daily. Increase Haldol to 7.5 mg at bedtime and titrated according to clinical response and tolerance. He shows a response to the Haldol consider transitioning to Haldol decanoate. Discuss his request for transfer with his social media coordinator. Consider augmentation with lithium. Encourage participation in therapeutic groups and activities. Evaluate clinical status response to treatment daily basis.
[2020-07-18] MEDS: haloperidoL 5 MG TAB PO SCH (20:44)
[2020-07-19] MEDS: FLUoxetine HCL 20 MG CAP PO SCH (08:15)
--- NOTE | 2020-07-19 11:56 | P.PN ---
Progress Note - Text Progress Note Date: 07/19/20 Clinical Problems: Elective mutism, schizoaffective disorder depressed type, history of PTSD, history of alcohol use disorder Interim history: I reviewed the medical record and interviewed the patient. He complained of poor sleep and feels tired and fatigued. When they asked him what is preventing him from sleeping he replied "nightmares." He again requested either transfer to the hospital or discharged so that he could be admitted to a [facility]. He denied side effects to the increased dose of Haldol. He has no interest in attending therapeutic groups or interacting with other patients or peers. He remains compliant with medication but does not attend therapeutic groups or activities. Mental status exam: He presented as a casually groomed old 40-year-old male who is laying in bed. He sat up and attended to the interview. He had psychomotor slowing. His speech was slow with decreased prosody. His affect was depressed and unreactive. He denied suicidal ideation and wishes. He feels hopeless and helpless. He did not express ideas reference or paranoid ideation. His thinking was concrete and his associations appeared goal directed. He had poverty of content. He denied hallucinations and did not appear to be responding to internal stimuli. Assessment: He is shown an initial response to treatment but remains withdrawn and appears depressed. Plan: Continue inpatient treatment. Safety precautions. Continue Prozac to 40 mg daily. Continued Haldol to 7.5 mg at bedtime and titrated according to clinical response and tolerance. Consider Haldol Decanoate. Restart Minipress 2 mg at bedtime for sleep and nightmares. Discuss his request for transfer with his social services technician. Consider augmentation with lithium if the depression does not continue to improve. Encourage participation in therapeutic groups and activities. Evaluate clinical status response to treatment daily basis.
[2020-07-19] MEDS: haloperidoL 5 MG TAB PO SCH (20:41)
[2020-07-19] MEDS: PRAZOSIN 1 MG CAP PO SCH (20:41)
[2020-07-20] MEDS: FLUoxetine HCL 20 MG CAP PO SCH (08:53)
--- NOTE | 2020-07-20 11:00 | P.PN ---
Progress Note - Text Progress Note Date: 07/20/20 Clinical Problems: Elective mutism, schizoaffective disorder depressed type, history of PTSD, history of alcohol use disorder Interim history: I reviewed the medical record and interviewed the patient. When approached and today he was laying in bed asleep. He did not sleep last night. When asked the reason he hadn't slept replied that he "just couldn't." He again requested to be transferred to the [facility] or be discharged so that he could go to a [facility] for [facility]. He complained of continued feelings of depression but denied suicidal ideation, intent or plan. He denied experiencing auditory, visual or olfactory hallucinations, ideas reference, thought insertion, thought processing or thought control. He remains compliant with medications but does not attend therapeutic groups or activities. Mental status exam: He presented as a casually groomed old 40-year-old male who is laying in bed. He sat up and attended to the interview. He had psychomotor slowing. His speech was slow with decreased prosody. His affect was depressed and unreactive. He denied suicidal ideation and wishes. He feels hopeless and helpless. He did not express ideas reference or paranoid ideation. His thinking was concrete and his associations appeared goal direct ed. He had poverty of content. He denied hallucinations and did not appear to be responding to internal stimuli. Assessment: He is shown an initial response to treatment but remains withdrawn and appears depressed. Plan: Continue inpatient treatment. Safety precautions. Continue Prozac to 40 mg daily. Continued Haldol to 7.5 mg at bedtime and titrated according to clinical response and tolerance. Continue Minipress 2 mg at bedtime for sleep and nightmares. Discuss his request for transfer with his social work nurse. Consider augmentation with lithium if the depression does not continue to improve. Encourage participation in therapeutic groups and activities. Evaluate clinical status response to treatment daily basis.
[2020-07-20] MEDS: haloperidoL 5 MG TAB PO SCH (20:40)
[2020-07-20] MEDS: PRAZOSIN 1 MG CAP PO SCH (20:40)
[2020-07-21 06:32] VITALS: BP 129/57; PULSE 62; RESP 16; TEMP 98.5
[2020-07-21] MEDS: FLUoxetine HCL 20 MG CAP PO SCH (08:07)
--- NOTE | 2020-07-21 10:59 | P.DS ---
Providers Date of admission: 07/06/20 08:34 Attending physician: Matt Ellis MD Consults: 07/06/20 08:44 Consult Physician Routine Consulting Provider: Marc Daniels Consult Reason/Comments: New Admission H & P Do you want consulting provider notified?: Yes Primary care physician: Sam Aponte - Discharge Diagnosis(es) (1) Elective mutism Current Visit: Yes Status: Resolved Priority: High (2) Schizoaffective disorder, depressive type Current Visit: Yes Status: Chronic Priority: High (3) History of posttraumatic stress disorder (PTSD) Current Visit: Yes Status: Chronic Priority: Medium Hospital Course: HISTORY: He is 40-year-old male admitted to the psychiatric u nit voluntarily with complaints of depression and suicidal ideation. He was mute during our interview. He gestured that he either had thoughts or attempted to cut his wrist in a suicide attempt. In response to my question about how he is feeling he shook his head and pointed to his chest indicating that he was an well. According to the medical record he presented to the ER with complaints of veliz icidal ideation with plan to slit his wrists. He told the EPS nurse that he had increasing suicidal thoughts for several days prior to admission. He recently gave up guardianship of his children to a cousin who allegedly will not allow him visitation He also admitted to experiencing homicidal thoughts towards a cousin. According to record she has had several past psychiatric hospitalizations in the [place] system. The last was approximately 6 months ago. HOSPITAL COURSE: We admitted him voluntarily to the psychiatric unit under care of this card writer hand. Provided a comprehensive biopsychosocial assessment. The security and privacy consultant flight engineer completed initial physical exam and medical history and did not diagnose a major medical condition. We initially resumed his reported outpatient medications including Prozac 20 mg daily and olanzapine 10 mg at bedtime. He was mute throughout much of the hospitalization. There is no change in his clinical condition with and increase of Prozac to 40 mg and titr atedand speeding up to 20 mg. We tapered and discontinue olanzapine and began a trial of Haldol beginning at 2.5 mg daily. Her dose of 7.5 mg of Haldol he began to talk. He was unable to explain the reasons for his refusal to speak. When he began talking he requested either a transfer to a [place] [facility] or discharge so that he could present for admission to the [facility]. He did not attend therapeutic groups or activities. He spent his time in bed coming out only for meals and medications. He seldom interacted with staff or peers. caseworker intake spoke with her mother prior to discharge. She had no objection to discharge him with follow-up through the [place]. MENTAL STATUS ON DISCHARGE: At time of discharge he presented as a casually groomed stocking 40-year-old male who was pleasant on approach. He made eye contact and attended to the interview. He had no distinguishing features or prominent physical abnormalities. He had a flat facial expression. He showed psychomotor retardation but no abnormal involuntary movements. Her speech was nonspontaneous and had decreased rate and rhythm. His affect was depressed and not reactive. He denied suicidal ideation and wishes. She denied homicidal ideation. He did not express feelings of hopelessness, helplessness or worthlessness. He did not express ideas reference, paranoid ideation or delusions. His thinking was concrete but his associations were coherent, logical and goal directed. He denied hallucinations and did not appear to responding to internal stimuli. DISPOSITION: He returned to his former address. The psychologist social arrange an appointment for [facility] through [facility] at 07/22/2020. His discharge medications included Prozac 40 mg daily and Haldol 7.5 mg at bedtime. Patient Condition at Discharge: Fair Plan - Discharge Summary New Discharge Prescriptions: New haloperidoL [Haldol] 7.5 mg PO HS #45 tab FLUoxetine HCL [PROzac] 40 mg PO DAILY #60 cap Continue Atorvastatin [Lipitor] 20 mg PO HS Prazosin [Minipress] 1 mg PO HS #30 cap Discontinued OLANZapine [ZyPREXA] 10 mg PO HS [place] Carbonate [Lithobid] 600 mg PO HS FLUoxetine HCL [PROzac] 10 mg PO DAILY Discharge Medication List Atorvastatin [Lipitor] 20 mg PO HS 07/06/20 [History] FLUoxetine HCL [PROzac] 40 mg PO DAILY #60 cap 07/21/20 [Rx] Prazosin [Minipress] 1 mg PO HS #30 cap 07/21/20 [Rx] haloperidoL [Haldol] 7.5 mg PO HS #45 tab 07/21/20 [Rx] Follow up Appointment(s)/Referral(s): [facility] [Outside] - 07/22/20 12:30 pm (Appointment 07/22/20 at 12:30 with Medhat Cabrera by phone.) Sam Aponte MD [Primary Care Provider] - 1-2 days Patient Instructions/Handouts: How to Stop Smoking (DC), Depression (DC) Activity/Diet/Wound Care/Special Instructions: Activity and diet as tolerated. Avoid the use of street drugs and alcohol. Take all medications as prescribed. When you are in need of refills on your medicat ions please contact your medical provider and/or outpatient psychiatrist to have this done. Please go to scheduled outpatient appointment for aftercare treatment. If symptoms return or become worse, call the crisis line at and/or go to the nearest emergency room for evaluation. Discharge Disposition: HOME SELF-CARE
== END 2020-07-21 11:10 | disposition home or self-care (01) | DRG 885 ==
LOC: EC 21:29 → 3MHU 07-06 08:34
PROVIDERS: ADMIT Psychiatry & Neurology Psychiatry; ATTEND Psychiatry & Neurology Psychiatry
DX: F25.1 Schizoaffective disorder, depressive type (principal); R45.851 Suicidal ideations; R45.850 Homicidal ideations; F94.0 Selective mutism; Z20.828 Contact with and (suspected) exposure to other viral communicable diseases; F43.10 Post-traumatic stress disorder, unspecified; F12.90 Cannabis use, unspecified, uncomplicated; F41.1 Generalized anxiety disorder; F17.210 Nicotine dependence, cigarettes, uncomplicated; Z71.6 Tobacco abuse counseling; Z79.899 Other long term (current) drug therapy; Z72.89 Other problems related to lifestyle
CPT/HCPCS: 36415; 80053; 80061; 80306; 81003; 82075; 83036; 84443; 85025; 87635; 99285

== ENCOUNTER 2021-01-06 07:51 | Inpatient (IN) | payer MEDICARE, MEDICAID ==
[2021-01-06 08:43] LABS: Basophils # (A) 0.1 k/uL (0-0.2); Basophils % (A) 1 %; Eosinophils # (A) 0.2 k/uL (0-0.7); Eosinophils % (A) 2 %; HCT 43.4 % (39.0-53.0); HGB 15.6 gm/dL (13.0-17.5); Lymphocytes # (A) 1.9 k/uL (1.0-4.8); Lymphocytes % (A) 24 %; MCH 31.4 pg (25.0-35.0); MCHC 36.1 g/dL (31.0-37.0); MCV 87.2 fL (80.0-100.0); Mean Platelet Volume 7.4; Monocytes # (A) 0.7 k/uL (0-1.0); Monocytes % (A) 9 %; Neutrophils % (A) 63 %; Platelet Count 323 k/uL (150-450); RBC 4.97 m/uL (4.30-5.90); WBC 8.1 k/uL (3.8-10.6)
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
[2021-01-06 08:49] LABS: ALT 23 U/L (4-49); AST 34 U/L (17-59); Acetaminophen <10.0 ug/mL; African American GFR (CKD) >90 (>60 ml/min/1.73 sqM); Albumin 4.6 g/dL (3.5-5.0); Alkaline Phosphatase 70 U/L (38-126); Anion Gap 10 mmol/L; Blood Urea Nitrogen 10 mg/dL (9-20); Calcium 9.7 mg/dL (8.4-10.2); Carbon Dioxide 25 mmol/L (22-30); Chloride 106 mmol/L (98-107); Glucose 102 mg/dL (74-99); Lipase 94 U/L (23-300); Non-African American GFR(CKD) >90 (>60 ml/min/1.73 sqM); Potassium 3.7 mmol/L (3.5-5.1); Salicylate <1.0 mg/dL; Sodium 141 mmol/L (137-145); Total Bilirubin 0.6 mg/dL (0.2-1.3); Total Protein 7.5 g/dL (6.3-8.2)
[2021-01-06] MEDS ORDERED: ACETAMINOPHEN TAB 325 MG TAB PO STA (11:56)
[2021-01-06] MEDS ORDERED: IBUPROFEN 600 MG TAB PO STA (14:33)
--- NOTE | 2021-01-06 14:50 | XR ---
EXAMINATION TYPE: XR chest 1V DATE OF EXAM: 01/06/2021 COMPARISON: NONE HISTORY: Pain TECHNIQUE: Single frontal view of the chest is obtained. FINDINGS: There is elevation of the left hemidiaphragm. There is no focal air space opacity, pleural effusion, or pneumothorax seen. The cardiac silhouette size is within normal limits. The osseous structures are intact. IMPRESSION: Nonspecific elevation of the left hemidiaphragm.
[2021-01-06 16:36] LABS: Amphetamine Screen,Urine Not Detected (NotDetected); Barbiturate Screen,Urine Not Detected (NotDetected); Benzodiazepines Screen,Urine Not Detected (NotDetected); Cocaine Screen,Urine Not Detected (NotDetected); Methadone Screen, Urine Not Detected (NotDetected); Opiate Screen,Urine Not Detected (NotDetected); Oxycodone Screen, Urine Not Detected (NotDetected); Phencyclidine Screen,Urine Not Detected (NotDetected); Tricyclic Antidepressant,Urine Not Detected (NotDetected); Urn Cannabinoid Scrn Detected (NotDetected)
[2021-01-06] MEDS ORDERED: MAG HYDROX/AL HYDROX/SIMETH 30 ML CUP PO PRN (20:46)
[2021-01-06] MEDS ORDERED: MAGNESIUM HYDROXIDE 2,400 MG/10 ML CUP PO PRN (20:46)
[2021-01-06] MEDS ORDERED: haloperidoL 5 MG TAB PO PRN (20:53)
[2021-01-06] MEDS ORDERED: HALOPERIDOL LACTATE 5 MG/ML 1 ML VIAL IM PRN (20:53)
[2021-01-06] MEDS: ATORVASTATIN 20 MG TAB PO SCH (21:14)
[2021-01-06] MEDS: haloperidoL 5 MG TAB PO SCH (21:14)
[2021-01-06] MEDS: ACETAMINOPHEN TAB 325 MG TAB PO PRN (21:14)
[2021-01-06] MEDS: NICOTINE 14MG/24HR PATCH TRANSDERM SCH (21:18)
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
[2021-01-07] MEDS: NICOTINE 14MG/24HR PATCH TRANSDERM SCH (08:44)
[2021-01-07 09:41] LABS: Chol/HDL Ratio 6.07; LDL Cholesterol,Calculated 186.6 mg/dL (0.0-131.0); VLDL Calculation 26.4 mg/dL (5.00-40.00)
[2021-01-07] MEDS: OLANZapine 10 MG TAB PO SCH ×2 (10:57→21:16)
[2021-01-07] MEDS: SERTRALINE 50 MG TAB PO SCH (10:58)
[2021-01-07 16:54] LABS: Hemoglobin A1C 4.3 % (4.0-6.0)
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
[2021-01-07] MEDS: ACETAMINOPHEN TAB 325 MG TAB PO PRN (21:15)
[2021-01-07] MEDS: PRAZOSIN 1 MG CAP PO SCH (21:16)
[2021-01-07] MEDS: haloperidoL 5 MG TAB PO SCH (21:16)
[2021-01-07] MEDS: ATORVASTATIN 20 MG TAB PO SCH (21:16)
[2021-01-08] MEDS: SERTRALINE 50 MG TAB PO SCH (08:36)
[2021-01-08] MEDS: OLANZapine 10 MG TAB PO SCH ×2 (08:36→21:33)
[2021-01-08] MEDS: ACETAMINOPHEN TAB 325 MG TAB PO PRN ×2 (08:37→21:34)
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
[2021-01-08] MEDS: PRAZOSIN 1 MG CAP PO SCH (21:33)
[2021-01-08] MEDS: ATORVASTATIN 20 MG TAB PO SCH (21:33)
[2021-01-08] MEDS: haloperidoL 5 MG TAB PO SCH (21:33)
[2021-01-09 06:49] VITALS: RESP 16
[2021-01-09] MEDS: OLANZapine 10 MG TAB PO SCH ×2 (08:19→20:43)
[2021-01-09] MEDS: SERTRALINE 50 MG TAB PO SCH (08:19)
[2021-01-09] MEDS: ATORVASTATIN 20 MG TAB PO SCH (20:43)
[2021-01-09] MEDS: haloperidoL 5 MG TAB PO SCH (20:43)
[2021-01-09] MEDS: PRAZOSIN 1 MG CAP PO SCH (20:43)
[2021-01-09] MEDS ORDERED: diphenhydrAMINE 50 MG CAP PO STA (23:41)
[2021-01-10] MEDS: OLANZapine 10 MG TAB PO SCH ×2 (08:10→21:00)
[2021-01-10] MEDS: SERTRALINE 50 MG TAB PO SCH (08:10)
[2021-01-10] MEDS ORDERED: traZODone HCL 100 MG TAB PO PRN (14:20)
--- NOTE | 2021-01-10 14:21 | P.PN ---
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 He was minimally cooperative and would not get out of bed for the interview. He denied problems or concerns. Nursing staff reports that he is had no episodes of agitation or aggression. He has been compliant with prescribed medications and denied any side effects to the current dose of Zyprexa or sertraline. He does not attend therapeutic groups or activities. He spends his time alone and does not interact with staff or peers. He slept 6 hours last night. Mental status exam: He presented as a casually groomed male laying comfortably in bed. He made eye contact and appeared to attend to the interview. He had no prominent physical abnormalities. He had a angry facial expression. He had psychomotor retardation but no abnormal involuntary movements. Her speech was not spontaneous and had decreased rate, volume and rhythm. His affect was blunted. He did not express suicidal ideation or wishes. He denied homicidal ideation. He did not express such depressive cognitions as hopelessness, helplessness or worthlessness. He did not express ideas reference, paranoid ideation or delusions. His thinking was concrete and his thinking appeared organized and goal directed. He denied hallucinations and did not appear to be responding to internal stimuli. Assessment: He has demonstrated no agitation, aggression or overt expressions of anger since admission to the unit. Plan: Continue inpatient treatment. Deferral hearing is pending. Continue with current psychotropic medications including Zyprexa 10 mg twice a day, Minipress 2 mg at bedtime and sertraline 100 mg at bedtime. Trazodone 100 mg at bedtime when necessary for sleep. Encourage participation in therapeutic groups and activities. Evaluate clinical status response to treatment daily basis.
[2021-01-10] MEDS: PRAZOSIN 1 MG CAP PO SCH (21:00)
[2021-01-10] MEDS: haloperidoL 5 MG TAB PO SCH (21:00)
[2021-01-10] MEDS: ATORVASTATIN 20 MG TAB PO SCH (21:00)
[2021-01-11] MEDS: ACETAMINOPHEN TAB 325 MG TAB PO PRN (09:13)
[2021-01-11] MEDS: SERTRALINE 50 MG TAB PO SCH (09:14)
[2021-01-11] MEDS: OLANZapine 10 MG TAB PO SCH ×2 (09:14→20:38)
[2021-01-11] MEDS ORDERED: traZODone HCL 50 MG TAB PO PRN (12:30)
--- NOTE | 2021-01-11 12:39 | P.PN ---
Progress Note - Text Progress Note Date: 01/11/21 Interval History: Patient was seen lying in his bed today and was directable and agreeable to kenny cerrato with poem writer in the office. Patient claims that he is feeling tired during the day and continues to feel depressed and "shitty". He states that he is not suicidal today however continues to endorse feeling overwhelmed and depressed. He claims that he does have some anxiety. He was agreeable to continue with medications. He was asking about potential discharge date. He states that he came in the hospital initially because he had thoughts of wanting to drive his car into a tree. He claims that he slept fairly last night. At this time patient denies any suicidal or homical ideations, intent or plan. Patient denies any auditory, visual hallucinations and denies any paranoia or delusions. Patient denies any side effects from the medications and has been compliant with meds. Mental Status Exam: General Appearance: Patient appears to be stated age is alert, concrete and directable. Behavior: Patient is calmly seated without any agitated behavior. Constricted. Speech: Patient's speech is fluent and nonpressured. Mood/Affect: Mood is depressed and anxious, affect is congruent and constricted. Suicidality/Homicidality: Patient denies having any suicidal or homicidal ideation intent or plan. Perceptions: Patient denies any visual hallucinations and denies any auditory hallucinations Though content/process: Poverty of content, poverty of speech. [place]. Logical. Focused on discharge. 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 Patient has not signed adult voluntary form and was placed in patient's chart. -Medications: Decrease Zyprexa to 10 mg daily at bedtime for mood stabilization/psychosis. Decreased Haldol with plan to taper down. Continue with trazodone 50 mg daily at bedtime when necessary for insomnia. Increase Zoloft to 150 mg daily for mood/anxiety. Continue with prazosin 2 mg daily at bedtime for nightmares. -When necessary Ativan and Haldol for agitation/aggression. -NRT - not needed as patient does not smoke -SW on board for discharge planning. Encouraged the patient to participate in milieu. Currently awaiting deferral with staff attorney and court date.
[2021-01-11] MEDS: PRAZOSIN 1 MG CAP PO SCH (20:37)
[2021-01-11] MEDS: ATORVASTATIN 20 MG TAB PO SCH (20:38)
[2021-01-11] MEDS ORDERED: haloperidoL 5 MG TAB PO SCH (21:00)
[2021-01-12] MEDS: SERTRALINE 50 MG TAB PO SCH (08:12)
--- NOTE | 2021-01-12 11:22 | P.PN ---
Progress Note - Text Progress Note Date: 01/12/21 Interval History: Patient was seen lying in his bed today and was directable and agreeable to sp saqib with abstract writer in the office. He appears to be more awake today and claims that his mood is gradually improving however has a fairly constricted affect. He claims that he does not have any guns or weapons in the house and states that his sister may be able to check on him once he is discharged. He was fairly complacent with the treatment plan and apparently signed a deferral with the director [employer] [facility] yesterday. He claims that his mood has been improving and he feels less tired today and states that he was able to sleep approximately 7 or 8 hours last night. He states that he is not suicidal today. He claims that he does have some anxiety which has been improving. He was agreeable to continue with medications. At this time patient denies any suicidal or homical ideations, intent or plan. Patient denies any auditory, visual hallucinations and denies any paranoia or delusions. Patient denies any side effects from the medications and has been compliant with meds. Mental Status Exam: General Appearance: Patient appears to be stated age is alert, concrete and directable. Behavior: Patient is calmly seated without any agitated behavior. Constricted, improving mildly Speech: Patient's speech is fluent and nonpressured. Mood/Affect: Mood is improving mildly, affect is congruent and constricted. Suicidality/Homicidality: Patient denies having any suicidal or homicidal ideation intent or plan. Perceptions: Patient denies any visual hallucinations and denies any auditory hallucinations Though content/process: Poverty of content, poverty of speech. [place]. Logical. 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 Patient has not signed adult voluntary form and was placed in patient's chart. -Medications: Zyprexa to 10 mg daily at bedtime for mood stabilization/psychosis. d/c haldol. Continue with trazodone 50 mg daily at bedtime when necessary for insomnia. Zoloft to 150 mg daily for mood/anxiety. Continue with prazosin 2 mg daily at bedtime for nightmares. -When necessary Ativan and Haldol for agitation/aggression. -NRT - not needed as patient does not smoke -SW on board for discharge planning. Encouraged the patient to participate in milieu. Patient signed a deferral on 01/11/21. Likely discharge in 1-2 days back home.
[2021-01-12] MEDS: ATORVASTATIN 20 MG TAB PO SCH (20:56)
[2021-01-12] MEDS: PRAZOSIN 1 MG CAP PO SCH (20:56)
[2021-01-12] MEDS: OLANZapine 10 MG TAB PO SCH (20:56)
[2021-01-13] MEDS: SERTRALINE 50 MG TAB PO SCH (08:38)
[2021-01-13 08:40] VITALS: BP 127/83; PULSE 120; TEMP 97.2
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
== END 2021-01-13 13:48 | disposition home or self-care (01) | DRG 885 ==
LOC: EC 07:51 → 3MHU 19:29
PROVIDERS: ADMIT Psychiatry & Neurology Psychiatry; ATTEND Psychiatry & Neurology Psychiatry
DX: F33.9 Major depressive disorder, recurrent, unspecified (principal); R45.851 Suicidal ideations; F12.10 Cannabis abuse, uncomplicated; R10.9 Unspecified abdominal pain; G89.29 Other chronic pain; F17.210 Nicotine dependence, cigarettes, uncomplicated; F43.10 Post-traumatic stress disorder, unspecified; G47.00 Insomnia, unspecified; F41.9 Anxiety disorder, unspecified; Z20.822 Contact with and (suspected) exposure to COVID-19
CPT/HCPCS: 36415; 71045; 80053; 80061; 80143; 80179; 80306; 82075; 83036; 83690; 84443; 85025; 87635; 99285

== ENCOUNTER 2021-03-02 20:53 | Inpatient (IN) | payer MEDICARE, MEDICAID ==
--- NOTE | 2021-03-02 22:35 | ED ---
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 There is accompanying petition from the patient's mot her that states that he is not compliant with his treatment. He also reportedly has been driving erratically. Patient denies suicidal ideation. No homicidal ideation or hallucinations. MD Complaint: other -: days(s) Associated Psychiatric Symptoms: other Quality: getting worse Improves With: none Worsens With: none Associated Symptoms: denies other symptoms - Related Data Home Medications Medication Instructions Recorded Confirmed Acetaminophen Tab [Tylenol] 650 mg PO Q4H PRN 03/02/21 03/02/21 Cbd Oil 1 dose PO TID PRN 03/02/21 03/02/21 Ibuprofen [Motrin] 800 mg PO TID PRN 03/02/21 03/02/21 Naproxen Sodium [Aleve] 220 mg PO Q12H PRN 03/02/21 03/02/21 Previous Rx's Medication Instructions Recorded Prazosin [Minipress] 2 mg PO HS 30 Days cap 01/13/21 Allergies Allergy/AdvReac Type Severity Reaction Status Date / Time No Known Allergies Allergy Verified 03/02/21 23:28 Review of Systems ROS Statement: Those systems with pertinent positive or pertinent negative responses have been documented in the HPI. ROS Other: All systems not noted in ROS Statement are negative. Constitutional: Denies: fever Eyes: Denies: vision change Respiratory: Denies: cough, dyspnea Cardiovascular: Denies: chest pain, palpitations Gastrointestinal: Denies: abdominal pain, nausea, vomiting Genitourinary: Denies: dysuria, hematuria Musculoskeletal: Denies: back pain Skin: Denies: rash Neurological: Denies: headache, weakness, numbness Psychiatric: Denies: depression, auditory hallucinations, visual hallucinations, homicidal thoughts, suicidal thoughts Past Medical History Past Medical History: No Reported History Additional Past Medical History / Comment(s): PTSD History of Any Multi-Drug Resistant Organisms: None Reported Past Surgical History: No Surgical Hx Reported Past Psychological History: Anxiety, Bipolar, PTSD Smoking Status: Current every day smoker Past Alcohol Use History: None Reported Past Drug Use History: Marijuana General Exam Limitations: no limitations General appearance: alert, in no apparent distress Head exam: Present: atraumatic, normocephalic Eye exam: Present: normal appearance. Absent: scleral icterus, conjunctival injection ENT exam: Present: normal oropharynx Neck exam: Present: normal inspection Respiratory exam: Present: normal lung sounds bilaterally. Absent: respiratory distress, wheezes, rales, rhonchi, stridor Cardiovascular Exam: Present: regular rate, normal rhythm, normal heart sounds. Absent: systolic murmur, diastolic murmur, rubs, gallop GI/Abdominal exam: Present: soft. Absent: distended, tenderness, guarding, rebound, rigid, mass Extremities exam: Present: normal inspection, normal capillary refill. Absent: pedal edema, calf tenderness Back exam: Present: normal inspection. Absent: CVA tenderness (R), CVA tenderness (L) Neurological exam: Present: alert Psychiatric exam: Absent: depressed, agitated, anxious, flat affect, homicidal ideation, suicidal ideation Skin exam: Present: warm, dry, intact, normal color. Absent: rash Course Vital Signs 03/02/21 21:00 Temperature 98.3 F Pulse Rate 88 Respiratory 20 Rate Blood Pressure 116/71 O2 Sat by Pulse 99 Oximetry Disposition Clinical Impression: Mood disorder Disposition: ADMITTED IP TO THIS HOSP Condition: Good Is patient prescribed a controlled substance at d/c from ED?: No Referrals: None,Stated [Primary Care Provider] - 1-2 days
[2021-03-03 04:29] LABS: Appearance,Urine Cloudy (Clear); Bilirubin,Urine Negative (Negative); Blood,Urine Negative (Negative); Color,Urine Yellow; Glucose,Urine (UA) Negative (Negative); Hyaline Casts,Urine 11 /lpf (0-2); Ketones,Urine Trace (Negative); Leukocyte Esterase,Urine Negative (Negative); Mucus,Urine Moderate /hpf; Nitrite,Urine Negative (Negative); PH, Urine 5.5 (5.0-8.0); Protein,Urine 1+ (Negative); RBC,Urine <1 /hpf (0-5); Specific Gravity,Urine 1.031 (1.001-1.035); Squamous Epithelial Cell,Urine 4 /hpf (0-4); WBC,Urine 2 /hpf (0-5)
[2021-03-03] MEDS ORDERED: LORazepam 2 MG/ML INJ IM PRN (04:37)
[2021-03-03] MEDS ORDERED: LORazepam 1 MG TAB PO PRN (04:37)
[2021-03-03] MEDS ORDERED: HALOPERIDOL LACTATE 5 MG/ML 1 ML VIAL IM PRN (04:38)
[2021-03-03 04:43] LABS: Amphetamine Screen,Urine Not Detected (NotDetected); Barbiturate Screen,Urine Not Detected (NotDetected); Benzodiazepines Screen,Urine Not Detected (NotDetected); Cocaine Screen,Urine Not Detected (NotDetected); Methadone Screen, Urine Not Detected (NotDetected); Opiate Screen,Urine Not Detected (NotDetected); Oxycodone Screen, Urine Not Detected (NotDetected); Phencyclidine Screen,Urine Not Detected (NotDetected); Tricyclic Antidepressant,Urine Not Detected (NotDetected); Urn Cannabinoid Scrn Detected (NotDetected)
[2021-03-03] MEDS ORDERED: MAGNESIUM HYDROXIDE 2,400 MG/10 ML CUP PO PRN (05:30)
[2021-03-03] MEDS ORDERED: MAG HYDROX/AL HYDROX/SIMETH 30 ML CUP PO PRN (05:30)
[2021-03-03] MEDS ORDERED: ACETAMINOPHEN TAB 325 MG TAB PO PRN (05:30)
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
--- NOTE | 2021-03-04 09:50 | P.PN ---
Progress Note - Text Progress Note Date: 03/04/21 Interval History: Patient was seen lying in his bed today and was directable and agreeable to sp saqib with insurance underwriter in the office. Patient appeared to be fairly lethargic and slow moving. He also appeared to have poor hygiene and grooming and was unkempt. He was fairly argumentative about his hospital stay and was demanding discharge. She had very poor insight into his condition and need for treatment. He states that he does not need medications and was not taking them at home. He claims t hat he slept approximately 12 hours last night and states that he is not going to groups are once to participate on the unit. He states that he is not suicidal today. He claims that he does have some anxiety. He was guarded about his depression and his nightmares/trauma. He claims that he does not want to take any antidepressant medications and feels that "they don't work for me". At this time patient denies any suicidal or homical ideations, intent or plan. Patient denies any auditory, visual hallucinations and denies any paranoia or delusions. Patient denies any side effects from the medications and has been compliant with meds. Mental Status Exam: General Appearance: Patient appears to be stated age is alert, concrete and goal to redirect. Poor hygiene and grooming Behavior: Patient is calmly seated without any agitated behavior. Constricted, argumentative Speech: Patient's speech is fluent and nonpressured. Monotone Mood/Affect: Mood is "okay", affect is incongruent and constricted. Suicidality/Homicidality: Patient denies having any suicidal or homicidal ideation intent or plan. Perceptions: Patient denies any visual hallucinations and denies any auditory hallucinations Though content/process: Poverty of content, poverty of speech. [place]. Argumentative and demanding Memory and concentration: AOX3, grossly intact for the purposes of this session Judgment and insight: Poor Assessment major depressive disorder Noncompliance of medications. history of closed head injuries posttraumatic stress disorder Cannabis use disorder mild Plan: -Patient continues to meet criteria for inpatient psychiatric admission for symptom stabilization and safety. Patient has not signed adult voluntary form and was placed in patient's chart. -Medications: start Zoloft 50 mg daily for mood/anxiety. Continue with prazosin 2 mg daily at bedtime for nightmares. melatonin 5 mg qhs -When necessary Ativan and Haldol for agitation/aggression. -NRT - not needed as patient does not smoke -SW on board for discharge planning. Encouraged the patient to participate in milieu. Patient signed a deferral on 01/11/21 however was noncompliant with follow up and his meds and a demand was filed, insurance underwriter will complete a third cert today to testify for the hearing.
[2021-03-04] MEDS: SERTRALINE 50 MG TAB PO SCH ×2 (13:33→13:43)
[2021-03-04] MEDS: MELATONIN 5 MG TABLET PO SCH (22:14)
[2021-03-04] MEDS: PRAZOSIN 1 MG CAP PO SCH (22:15)
[2021-03-05] MEDS: SERTRALINE 50 MG TAB PO SCH (08:47)
--- NOTE | 2021-03-05 11:55 | P.PN ---
Progress Note - Text Progress Note Date: 03/05/21 Interval History: Patient was seen lying in his bed today and was directable and agreeable to sp saqib with comic book writer in the office. Patient appeared to be fairly lethargic and slow moving and continues to have an unkempt appearance. He continues to minimize his mental health condition and his need for treatment. He states that he feels trying more medications is "insanity" and refused to take any medications yesterday and did not want to talk about any medications today. he had very poor insight into his condition and need for treatment. He claims that he slept approximately 10 hours last night and states that he has only been going to the activity groups and feels that he is not getting anything out of them. He states that he is not suicidal today. He asked questions about his court date which were answered. He claims that he does have some anxiety. He was guarded about his depression and his nightmares/trauma. At this time patient denies any suicidal or homical ideations, intent or plan. Patient denies any auditory, visual hallucinations and denies any paranoia or delusions. Mental Status Exam: General Appearance: Patient appears to be stated age is alert, concrete and difficult to redirect. Poor hygiene and grooming. Unkempt Behavior: Patient is calmly seated without any agitated behavior. Constricted, argumentative Speech: Patient's speech is fluent and nonpressured. Monotone Mood/Affect: Mood is "ok", affect is incongruent and constricted. Suicidality/Homicidality: Patient denies having any suicidal or homicidal ideation intent or plan. Perceptions: Patient denies any visual hallucinations and denies any auditory hallucinations Though content/process: Poverty of content, poverty of speech. [place]. Argumentative Memory and concentration: AOX3, grossly intact for the purposes of this session Judgment and insight: Poor Assessment major depressive disorder Noncompliance of medications. history of closed head injuries posttraumatic stress disorder Cannabis use disorder mild Plan: -Patient continues to meet criteria for inpatient psychiatric admission for symptom stabilization and safety. Patient has not signed adult voluntary form and was placed in patient's chart. -Medications: Zoloft 50 mg daily for mood/anxiety. Continue with prazosin 2 mg daily at bedtime for nightmares. melatonin 5 mg qhs. Patient has not been taking his medications. -When necessary Ativan and Haldol for agitation/aggression. -NRT - not needed as patient does not smoke -SW on board for discharge planning. Encouraged the patient to participate in milieu. Patient signed a deferral on 01/11/21 however was noncompliant with follow up and his meds. Patient has his demand court hearing date set for 03/17.
[2021-03-05] MEDS: PRAZOSIN 1 MG CAP PO SCH (21:05)
[2021-03-05] MEDS: MELATONIN 5 MG TABLET PO SCH (21:05)
[2021-03-06] MEDS: SERTRALINE 50 MG TAB PO SCH (08:37)
[2021-03-06] MEDS ORDERED: IBUPROFEN 600 MG TAB PO PRN (16:57)
--- NOTE | 2021-03-06 17:03 | P.HPMEDMHU ---
<Wally Mota - Last Filed: 03/06/21 16:49> History of Present Illness H&P Date: 03/06/21 History of Presenting Illness: Patient is a 41-year-old male with a reported past medical history including nicotine dependence reportedly smoking a half a pack to a pack of cigarettes daily 15 years, cannabinoid use disorder, chronic back/knee/shoulder pains, PTSD, depression and anxiety. Patient currently admitted in inpatient mental health unit under primary admitting psychiatric team for stabilization and safety of his major depressive disorder. We have been consulted for continued medical management for outpatient stay. Patient was seen and fully evaluated on unit. During assessment, patient reports feeling slightly anxious but denies having any depression, suicidal ideations, or homicidal ideations. He denies having any visual/auditory/tactile hallucinations. Patient reports that he is currently hospitalized because "they're trying to fix my craziness". He reports his only request is to be given a "cigarette break". Patient reports occasional marijuana use and use of CBD oil. Patient denies having any alcohol use and denies any other drug use. He does report having uncontrolled chronic back pain, bilateral knee pain, and bilateral shoulder pains. Patient reports his back, knees, and shoulders make a cracking sound with movement. Patient denies any recent injuries. Patient denies having any headache, lightheadedness, dizziness, chest pain, palpitations, shortness of breath, abdominal pain, nausea, vomiting, numbness/tingling/weakness in his extremities or any other complaints or needs at this time. Review of systems: Pertinent positives and negatives as discussed in HPI, a complete review of systems was performed and all other systems are negative. Physical exam: Vital signs reviewed and stable. General: Nontoxic, no distress and appears stated age. Derm: Skin warm and dry, normal coloration for ethnicity. Head: Atraumatic, normocephalic and symmetric. Eyes: EOMs intact, no lid lag, and anicteric sclera Mouth: no lip lesions, mucus membranes moist Cardiovascular: regular rate and rhythm with normal S1S2, no murmur, positive posterior tibial pulses bilaterally, and cap refill < 2 seconds. Lungs: Respirations even, regular, and unlabored on room air. Lungs CTA bilaterally, no rhonchi, no rales, no wheezing, and no accessory muscle usage. Abdominal: soft, nontender to palpation, no guarding, no appreciable organomegaly Ext: ROM intact. No gross muscle atrophy, no edema, no contractures. Patient ambulatory with a steady gait without any noted difficulties. Neuro: Speech clear, face symmetrical and CN II-XII grossly intact with no noted focal neuro deficits Psych: Alert and oriented to person, place, time, and situation. Appropriate and pleasant affect. Assessment and Plan of Care: Acute on chronic lower back pain, bilateral shoulder pain, and bilateral lateral knee pain -Symptomatic care and pain management. -Tylenol and/or Motrin as needed for pain. Nicotine dependence -Patient to receive continued education and encouragement on the benefits of smoking cessation and the risks of continued use. Cannabinoid use disorder -Patient to receive continued encouragement and education on the benefits of cessation of cannabinoid use and risks associated with continued use. Major depressive disorder with history of PTSD, depression, and anxiety -Management per primary admitting psychiatric team. Thank you for allowing us to participate in the care of this pleasant patient. Do not hesitate to contact us with questions. Someone can be reached from the [facility] [place] [place] [facility] [facility] all hours of the day at [phone] or via [employer]. Past Medical History Past Medical History: No Reported History Additional Past Medical History / Comment(s): PTSD History of Any Multi-Drug Resistant Organisms: None Reported Past Surgical History: No Surgical Hx Reported Past Psychological History: Anxiety, Bipolar, PTSD Smoking Status: Current every day smoker Past Alcohol Use History: None Reported Past Drug Use History: Marijuana Medications and Allergies Home Medications Medication Instructions Recorded Confirmed Type Prazosin [Minipress] 2 mg PO HS 30 Days cap 01/13/21 03/03/21 Rx Acetaminophen Tab [Tylenol] 650 mg PO Q4H PRN 03/02/21 03/03/21 History Cbd Oil 1 dose PO TID PRN 03/02/21 03/03/21 History Ibuprofen [Motrin] 800 mg PO TID PRN 03/02/21 03/03/21 History Naproxen Sodium [Aleve] 220 mg PO Q12H PRN 03/02/21 03/03/21 History Allergies Allergy/AdvReac Type Severity Reaction Status Date / Time No Known Allergies Allergy Verified 03/03/21 05:26 Cranial Nerve Examination - Cranial Nerves Cranial Nerve II- Optic: Intact Cranial Nerve III- Oculomotor: Intact Cranial Nerve IV- Trochlear: Intact Cranial Nerve V- Trigeminal: Intact Cranial Nerve - Abducens: Intact Cranial Nerve VII- Facial: Intact Cranial Nerve VIII- Auditory: Intact Cranial Nerve IX- Glossopharyngeal: Intact Cranial Nerve X- Vagus: Intact Cranial Nerve XI- Accessory: Intact Cranial Nerve XII- Hypoglossal: Intact <Karolyn Lunsford - Last Filed: 03/06/21 18:46> History of Present Illness Patient seen and examined independently. Patient was also seen by Wally Mota NP and case was discussed. I am in agreement with subjective, physical exam, assessment and plan as written above and amended below. No other complaints currently. Had a slight headache but does not want pain meds at this time per nursing. General: non toxic, no distress, appears at stated age Derm: warm, dry Head: atraumatic, normocephalic, symmetric Eyes: EOMI, no lid lag, anicteric sclera Neuro: Speech fluent and intact without dysarthria, nonantalgic gait Psych: Alert, oriented, appropriate affect Physical Exam Osteopathic Statement: *. No significant issues noted on an osteopathic structural exam other than those noted in the History and Physical/Consult.
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
[2021-03-06] MEDS: MELATONIN 5 MG TABLET PO SCH (21:33)
[2021-03-06] MEDS: PRAZOSIN 1 MG CAP PO SCH (21:33)
[2021-03-07] MEDS: NICOTINE 14MG/24HR PATCH TRANSDERM SCH (08:51)
[2021-03-07] MEDS: SERTRALINE 50 MG TAB PO SCH (08:51)
--- NOTE | 2021-03-07 10:11 | P.PN ---
Progress Note - Text Progress Note Date: 03/07/21 Clinical Problems: Major depressive disorder recurrent severe without psychotic features, posttraumatic stress disorder, cannabis use disorder, history of closed head injury, noncompliance with mental health treatment Interim history: I reviewed the medical record and interviewed the patient. He would not bed for the interview. He made eye contact and answered questions brusquely. He offered no explanation why he is refusing to take his prescribed psychotropic medications. Mental status exam: He presented as an angry 41-year-old male who was minimally cooperative. He made eye contact and appeared to attend to the interview. He had a blunted facial expression. He had psychomotor retardation but no abnormal movements. His speech was not spontaneous and had decreased rate and and volume. His affect was flat. He denied suicidal ideation, wishes or homicidal ideation. He did not respond to questions about feelings of hopelessness, helplessness or worthlessness. He did not express ideas reference, paranoid ideation or delusions. His thinking was concrete but his associations appeared goal directed. He did not appear to be responding to internal stimuli. Assessment: He is minimally cooperative and is denying psychiatric problems or need for hospitalization. Plan: Continue inpatient hospitalization. His demand hearing is scheduled for 08/05/2020 Safety precautions. Encourage compliance with prescribed medications including Zoloft 50 mg daily, Minipress 2 mg at bedtime, melatonin 5 mg at bedtime and Habitrol for smoking cessation. Encourage participation in therapeutic groups and activities. Evaluate clinical status response to treatment daily basis.
[2021-03-07] MEDS: MELATONIN 5 MG TABLET PO SCH (21:34)
[2021-03-07] MEDS: PRAZOSIN 1 MG CAP PO SCH (21:34)
[2021-03-08] MEDS: NICOTINE 14MG/24HR PATCH TRANSDERM SCH (09:16)
[2021-03-08] MEDS: SERTRALINE 50 MG TAB PO SCH (09:17)
--- NOTE | 2021-03-08 11:29 | P.PN ---
Progress Note - Text Progress Note Date: 03/08/21 Interval History: Patient was seen lying in his bed today and was directable and agreeable to sp saqib with property underwriter in the office. Patient appeared to be fairly lethargic and slow moving. He continues to have an unkempt appearance. According to activity therapy notes patient did not attend however patient states that he is going to 4 groups a day. He is very evasive and guarded about his symptoms and also denying any changes in his mood or anxiety. He continues to state that he does not need medications and claims that "I've never needed medications of my life and they've never helped me". He continues to have poor insight into his condition and need for treatment. He claims that he slept approximately 10 hours last night and sleeping during the day. He states that he is not suicidal today. At this time patient denies any suicidal or homical ideations, intent or plan. Patient denies any auditory, visual hallucinations and denies any paranoia or delusions. Mental Status Exam: General Appearance: Patient appears to be stated age is alert, concrete and difficult to redirect. Poor hygiene and grooming. Unkempt Behavior: Patient is calmly seated without any agitated behavior. Constricted, superficial Speech: Patient's speech is fluent and nonpressured. Monotone Mood/Affect: Mood is "fine", affect is incongruent and constricted. Suicidality/Homicidality: Patient denies having any suicidal or homicidal ideation intent or plan. Perceptions: Patient denies any visual hallucinations and denies any auditory hallucinations Though content/process: Poverty of content, poverty of speech. [place]. Argumentative Memory and concentration: AOX3, grossly intact for the purposes of this session Judgment and insight: Poor/superficial Assessment major depressive disorder Noncompliance of medications. history of closed head injuries posttraumatic stress disorder Cannabis use disorder mild Plan: -Patient continues to meet criteria for inpatient psychiatric admission for symptom stabilization and safety. Patient has not signed adult voluntary form and was placed in patient's chart. -Medications: Zoloft 50 mg daily for mood/anxiety. Continue with prazosin 2 mg daily at bedtime for nightmares. melatonin 5 mg qhs. Patient has not been taking his medications. -When necessary Ativan and Haldol for agitation/aggression. -NRT - not needed as patient does not smoke -SW on board for discharge planning. Encouraged the patient to participate in milieu. Patient signed a deferral on 01/11/21 however was noncompliant with follow up and his meds. Patient has his demand court hearing date set for 03/17.
[2021-03-08] MEDS: MELATONIN 5 MG TABLET PO SCH (21:12)
[2021-03-08] MEDS: PRAZOSIN 1 MG CAP PO SCH (21:12)
[2021-03-09] MEDS: NICOTINE 14MG/24HR PATCH TRANSDERM SCH (09:07)
[2021-03-09] MEDS: SERTRALINE 50 MG TAB PO SCH (09:07)
--- NOTE | 2021-03-09 10:21 | P.PN ---
Progress Note - Text Progress Note Date: 03/09/21 Interval History: Patient was seen lying in his bed today and was directable and agreeable to kenny cerrato with caption writer in the office. Patient appeared to be fairly lethargic and slow moving once again today this morning. He continues to have an unkempt appearance however states that he is showering every other day. He states that he tries to go to some groups however denies going any activities groups or interacting with other patients on the unit. He is mainly keeping himself in his room. He is continuing to minimize his symptoms and his need for treatment. He is denying any changes in his mood or anxiety. He continues to state that he does not need medications. He continues to have poor insight into his condition. He claims that he slept poorly last night and states that he is having nightmares. He claims that "I just have to deal with it". He states that he is not suicidal today. At this time patient denies any suicidal or homical ideations, intent or plan. Patient denies any auditory, visual hallucinations and denies any paranoia or delusions. Mental Status Exam: General Appearance: Patient appears to be stated age is alert, concrete and difficult to redirect. Poor hygiene and grooming. Unkempt Behavior: Patient is calmly seated without any agitated behavior. Constricted, superficial Speech: Patient's speech is fluent and nonpressured. Monotone Mood/Affect: Mood is "fine", affect is incongruent and constricted. Suicidality/Homicidality: Patient denies having any suicidal or homicidal ideation intent or plan. Perceptions: Patient denies any visual hallucinations and denies any auditory hallucinations Though content/process: Poverty of content, poverty of speech. [place]. Guarded Memory and concentration: AOX3, grossly intact for the purposes of this session Judgment and insight: Poor/superficial Assessment major depressive disorder Noncompliance of medications. history of closed head injuries posttraumatic stress disorder Cannabis use disorder mild Plan: -Patient continues to meet criteria for inpatient psychiatric admission for symptom stabilization and safety. Patient has not signed adult voluntary form and was placed in patient's chart. -Medications: continue with Zoloft 50 mg daily for mood/anxiety. Continue with prazosin 2 mg daily at bedtime for nightmares. melatonin 5 mg qhs. Patient has not been taking his medications. -When necessary Ativan and Haldol for agitation/aggression. -NRT - not needed as patient does not smoke -SW on board for discharge planning. Encouraged the patient to participate in milieu. Patient signed a deferral on 01/11/21 however was noncompliant with follow up and his meds. Patient has his demand court hearing date set for 03/17.
[2021-03-09] MEDS: PRAZOSIN 1 MG CAP PO SCH (21:04)
[2021-03-09] MEDS: MELATONIN 5 MG TABLET PO SCH (21:04)
[2021-03-10] MEDS: NICOTINE 14MG/24HR PATCH TRANSDERM SCH (09:38)
[2021-03-10] MEDS: SERTRALINE 50 MG TAB PO SCH (09:38)
--- NOTE | 2021-03-10 11:11 | P.PN ---
Progress Note - Text Progress Note Date: 03/10/21 Interval History: Patient was seen in the hallways today and was with one of the mental health t echnicians looking at different DVDs in a box. Patient was approached by development writer however patient was very dismissive of development writer today and claims that he does not want to talk to him today and to leave him alone. Engraver Seals offered to speak with patient later on and patient stated "no". Mental Status Exam: General Appearance: Patient appears to be stated age is alert, concrete and difficult to redirect. Poor hygiene and grooming. Unkempt Behavior: Uncooperative and dismissive Speech: Patient's speech is fluent and nonpressured. Monotone Mood/Affect: Unable to assess Suicidality/Homicidality: Unable to assess Perceptions: Unable to assess Though content/process: Poverty of content, poverty of speech. [place]. Dismissive Memory and concentration: Unable to assess Judgment and insight: Poor Assessment major depressive disorder Noncompliance of medications. history of closed head injuries posttraumatic stress disorder Cannabis use disorder mild Plan: -Patient continues to meet criteria for inpatient psychiatric admission for symptom stabilization and safety. Patient has not signed adult voluntary form and was placed in patient's chart. -Medications: continue with Zoloft 50 mg daily for mood/anxiety. Continue with prazosin 2 mg daily at bedtime for nightmares. melatonin 5 mg qhs. Patient has not been taking his medications. -When necessary Ativan and Haldol for agitation/aggression. -NRT - not needed as patient does not smoke -SW on board for discharge planning. Encouraged the patient to participate in milieu. Patient signed a deferral on 01/11/21 however was noncompliant with follow up and his meds. Patient has his demand court hearing date set for 03/17.
[2021-03-10] MEDS: MELATONIN 5 MG TABLET PO SCH (22:05)
[2021-03-10] MEDS: PRAZOSIN 1 MG CAP PO SCH (22:05)
[2021-03-11] MEDS: NICOTINE 14MG/24HR PATCH TRANSDERM SCH (08:41)
[2021-03-11] MEDS: SERTRALINE 50 MG TAB PO SCH (08:41)
--- NOTE | 2021-03-11 11:20 | P.PN ---
Progress Note - Text Progress Note Date: 03/11/21 Interval History: Patient was seen lying in his bed this morning with the sheets covering his fa ce. Patient was attempted to be awoken by continuity writer however patient was resistant to being awaken and turned his head away from continuity writer. Cut Out Press Operator attempted to engage with patient and asked him if he would like to meet with him today to speak however patient states "I'm tired leave me alone". Cut Out Press Operator asked if patient would be willing to speak with Remeron and patient states "not with you go away". Patient continues to refuse medications. Mental Status Exam: General Appearance: Patient appears to be stated age is alert, concrete. Poor hygiene and grooming. Unkempt Behavior: Uncooperative and dismissive Speech: Patient's speech is fluent and nonpressured. Monotone Mood/Affect: Unable to assess Suicidality/Homicidality: Unable to assess Perceptions: Unable to assess Though content/process: Poverty of content, poverty of speech. [place]. Dismissive Memory and concentration: Unable to assess Judgment and insight: Poor Assessment major depressive disorder Noncompliance of medications. history of closed head injuries posttraumatic stress disorder Cannabis use disorder mild Plan: -Patient continues to meet criteria for inpatient psychiatric admission for symptom stabilization and safety. Patient has not signed adult voluntary form and was placed in patient's chart. -Medications: continue with Zoloft 50 mg daily for mood/anxiety. Continue with prazosin 2 mg daily at bedtime for nightmares. melatonin 5 mg qhs. Patient has not been taking his medications. -When necessary Ativan and Haldol for agitation/aggression. -NRT - not needed as patient does not smoke -SW on board for discharge planning. Encouraged the patient to participate in milieu. Patient signed a deferral on 01/11/21 however was noncompliant with follow up and his meds. Patient has his demand court hearing for mar 17
[2021-03-11] MEDS: MELATONIN 5 MG TABLET PO SCH (21:02)
[2021-03-11] MEDS: PRAZOSIN 1 MG CAP PO SCH (21:03)
[2021-03-12] MEDS: SERTRALINE 50 MG TAB PO SCH (07:46)
[2021-03-12] MEDS: NICOTINE 14MG/24HR PATCH TRANSDERM SCH (07:46)
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
[2021-03-12] MEDS: MELATONIN 5 MG TABLET PO SCH (20:47)
[2021-03-12] MEDS: PRAZOSIN 1 MG CAP PO SCH (20:47)
[2021-03-13] MEDS: SERTRALINE 50 MG TAB PO SCH (08:15)
[2021-03-13] MEDS: NICOTINE 14MG/24HR PATCH TRANSDERM SCH (08:15)
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
[2021-03-13] MEDS: MELATONIN 5 MG TABLET PO SCH (21:06)
[2021-03-13] MEDS: PRAZOSIN 1 MG CAP PO SCH (21:06)
[2021-03-14] MEDS: NICOTINE 14MG/24HR PATCH TRANSDERM SCH (08:24)
[2021-03-14] MEDS: SERTRALINE 50 MG TAB PO SCH (08:24)
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
[2021-03-14] MEDS: PRAZOSIN 1 MG CAP PO SCH (22:43)
[2021-03-14] MEDS: MELATONIN 5 MG TABLET PO SCH (22:43)
[2021-03-15] MEDS: NICOTINE 14MG/24HR PATCH TRANSDERM SCH (08:31)
[2021-03-15] MEDS: SERTRALINE 50 MG TAB PO SCH (08:32)
--- NOTE | 2021-03-15 10:02 | P.PN ---
Progress Note - Text Progress Note Date: 03/15/21 Interval History: Patient was seen taking part in group today and continues to appear to be unke mpt in appearance. Patient was approached by global technical writer to be seen today however patient stated that he did not want to speak to global technical writer today. Mental Status Exam: General Appearance: Patient appears to be stated age is alert, concrete. Unkempt Behavior: Uncooperative and dismissive Speech: Patient's speech is fluent and nonpressured. Monotone Mood/Affect: Unable to assess Suicidality/Homicidality: Unable to assess Perceptions: Unable to assess Though content/process: Poverty of content, poverty of speech. [place]. Dismissive Memory and concentration: Unable to assess Judgment and insight: Poor Assessment major depressive disorder Noncompliance of medications. history of closed head injuries posttraumatic stress disorder Cannabis use disorder mild Plan: -Patient continues to meet criteria for inpatient psychiatric admission for symptom stabilization and safety. Patient has not signed adult voluntary form and was placed in patient's chart. -Medications: continue with Zoloft 50 mg daily for mood/anxiety. Continue with prazosin 2 mg daily at bedtime for nightmares. melatonin 5 mg qhs. Patient has not been taking his medications. -When necessary Ativan and Haldol for agitation/aggression. -NRT - not needed as patient does not smoke -SW on board for discharge planning. Encouraged the patient to participate in milieu. Patient signed a deferral on 01/11/21 however was noncompliant with follow up and his meds. Patient has his demand court hearing for mar 17
[2021-03-15 13:54] VITALS: BMI 32.9
[2021-03-15] MEDS: MELATONIN 5 MG TABLET PO SCH (21:09)
[2021-03-15] MEDS: PRAZOSIN 1 MG CAP PO SCH (21:09)
[2021-03-16] MEDS: NICOTINE 14MG/24HR PATCH TRANSDERM SCH (08:14)
[2021-03-16] MEDS: SERTRALINE 50 MG TAB PO SCH (08:15)
--- NOTE | 2021-03-16 10:37 | P.PN ---
Progress Note - Text Progress Note Date: 03/16/21 Interval History: Patient was seen this morning laying in his bed. He continues to have poor hyg iiene and grooming and continues to be refusing medications. He was approached by show card writer to be interviewed today however patient shook his head and states "no" and stopped talking to show card writer and demanded him to leave his room. Mental Status Exam: General Appearance: Patient appears to be stated age is alert, concrete. Unkempt Behavior: Uncooperative and dismissive Speech: Patient's speech is fluent and nonpressured. Monotone Mood/Affect: Unable to assess Suicidality/Homicidality: Unable to assess Perceptions: Unable to assess Though content/process: Poverty of content, poverty of speech. [place]. Dismissive Memory and concentration: Unable to assess Judgment and insight: Poor Assessment major depressive disorder Noncompliance of medications. history of closed head injuries posttraumatic stress disorder Cannabis use disorder mild Plan: -Patient continues to meet criteria for inpatient psychiatric admission for symptom stabilization and safety. Patient has not signed adult voluntary form and was placed in patient's chart. -Medications: continue with Zoloft 50 mg daily for mood/anxiety. Continue with prazosin 2 mg daily at bedtime for nightmares. melatonin 5 mg qhs. Patient has not been taking his medications. -When necessary Ativan and Haldol for agitation/aggression. -NRT - not needed as patient does not smoke -SW on board for discharge planning. Encouraged the patient to participate in milieu. Patient signed a deferral on 01/11/21 however was noncompliant with follow up and his meds. Patient has his demand court hearing for mar 17
[2021-03-16] MEDS: PRAZOSIN 1 MG CAP PO SCH (20:15)
[2021-03-16] MEDS: MELATONIN 5 MG TABLET PO SCH (20:15)
[2021-03-17] MEDS: SERTRALINE 50 MG TAB PO SCH (08:16)
[2021-03-17] MEDS: NICOTINE 14MG/24HR PATCH TRANSDERM SCH (08:16)
--- NOTE | 2021-03-17 10:10 | P.PN ---
Progress Note - Text Progress Note Date: 03/17/21 Interval History: Patient was seen this morning sitting in the [facility] with other patients. Patient appeared to be waiting for group to start. He continues to appear to have an unkempt appearance. He was approached by screen writer to speak today however patient refused once again. He is continuing to refuse medications. Patient was informed of the hearing date today at 11:30 AM which she acknowledged. Mental Status Exam: General Appearance: Patient appears to be stated age is alert, concrete. Unkempt Behavior: Uncooperative and dismissive Speech: Patient's speech is fluent and nonpressured. Monotone Mood/Affect: Unable to assess Suicidality/Homicidality: Unable to assess Perceptions: Unable to assess Though content/process: Poverty of content, poverty of speech. [place]. Dismissive Memory and concentration: Unable to assess Judgment and insight: Poor Assessment major depressive disorder Noncompliance of medications. history of closed head injuries posttraumatic stress disorder Cannabis use disorder mild Plan: -Patient continues to meet criteria for inpatient psychiatric admission for symptom stabilization and safety. Patient has not signed adult voluntary form and was placed in patient's chart. -Medications: continue with Zoloft 50 mg daily for mood/anxiety. Continue with prazosin 2 mg daily at bedtime for nightmares. melatonin 5 mg qhs. Patient has not been taking his medications. -When necessary Ativan and Haldol for agitation/aggression. -NRT - not needed as patient does not smoke -SW on board for discharge planning. Encouraged the patient to participate in milieu. Patient signed a deferral on 01/11/21 however was noncompliant with follow up and his meds. Patient has his court hearing date today at 11:30 AM.
[2021-03-17] MEDS: MELATONIN 5 MG TABLET PO SCH (20:30)
[2021-03-17] MEDS: PRAZOSIN 1 MG CAP PO SCH (20:30)
[2021-03-18] MEDS: NICOTINE 14MG/24HR PATCH TRANSDERM SCH (08:44)
[2021-03-18] MEDS: SERTRALINE 50 MG TAB PO SCH (08:44)
--- NOTE | 2021-03-18 11:45 | P.PN ---
Progress Note - Text Progress Note Date: 03/18/21 Interval History: Patient was seen this morning laying in bed with the sheets covering his face. Patient refused to attempt to speak with business writer and older adult social work specialist at the bedside and states that "I just want to go back to sleep leave me alone". He spoke in a soft tone of voice however was fairly demanding. Account Resolution Expert and older adult social work specialist attempted several times to engage with patient to discuss the court order and also the treatment plan and discharge plan however patient refused to cooperate and continuously stated "I don't want any medications at all and I'm not going to any program". He refused to answer any questions related to his mood and suicidal or homicidal thoughts. Mental Status Exam: General Appearance: Patient appears to be stated age is alert, concrete. Unkempt Behavior: Uncooperative and dismissive Speech: Patient's speech is fluent and nonpressured. Monotone Mood/Affect: Unable to assess Suicidality/Homicidality: Unable to assess Perceptions: Unable to assess Though content/process: Poverty of content, poverty of speech. [place]. Dismissive Memory and concentration: Unable to assess Judgment and insight: Poor Assessment major depressive disorder Noncompliance of medications. history of closed head injuries posttraumatic stress disorder Cannabis use disorder mild Plan: -Patient continues to meet criteria for inpatient psychiatric admission for symptom stabilization and safety. Patient has not signed adult voluntary form and was placed in patient's chart. -Medications: continue with Zoloft 50 mg daily for mood/anxiety. Patient is now court ordered, if patient refuses PO zoloft then he is to receive Zyprexa IM. Continue with prazosin 2 mg daily at bedtime for nightmares. melatonin 5 mg qhs. -When necessary Ativan and Haldol for agitation/aggression. -NRT - not needed as patient does not smoke -SW on board for discharge planning. Encouraged the patient to participate in milieu.Patient had court hearing on 03/17/21 which resulted in a court order for treatment. SW will attempt to reach out to Christa ([facility] liasion at [facility]) for options for dischrage to a [facility] program. At this time patient is refusing to any programs.
[2021-03-18] MEDS: PRAZOSIN 1 MG CAP PO SCH (20:24)
[2021-03-18] MEDS: MELATONIN 5 MG TABLET PO SCH (20:24)
[2021-03-19] MEDS: NICOTINE 14MG/24HR PATCH TRANSDERM SCH (08:05)
[2021-03-19] MEDS: SERTRALINE 50 MG TAB PO SCH ×2 (08:06→08:10)
[2021-03-19] MEDS ORDERED: WATER FOR INJECTION, STERILE 10 ML IV ONE (08:17)
[2021-03-19] MEDS: OLANZapine 10 MG VIAL IM PRN (08:24)
--- NOTE | 2021-03-19 12:47 | P.PN ---
Progress Note - Text Progress Note Date: 03/19/21 Clinical Problems: Major depressive disorder recurrent severe without psychotic features, rule out schizoaffective disorder depressed type, cannabis use disorder, history of closed head injury, noncompliance with mental health treatment Interim history: I reviewed the medical record interviewed the patient and discuss his treatment and treatment plan during team meeting. He received a combined treatment order following his probate hearing on 03/17/2021. He again refused the morning dose of Zoloft. As per the treatment plan he didn't receive an IM injection of 2.5 mg of Zyprexa. He was resistant to the medication but did not become disruptive or aggressive. He repeatedly told nurse that he does not want to take medications. He would not get out of bed for the interview. He slowly made eye contact and mumbled about not wanting to take medication. Mental status exam: He again presented as an angry 41-year-old male who was minimally cooperative. He made eye contact and appeared to attend to the interview. He had a flat facial expression. He had psychomotor retardation but no abnormal movements. His speech was not spontaneous and had decreased rate and and volume. His affect was flat. He did not express suicidal ideation, wishes or homicidal ideation. He did not respond to questions about feelings of hopelessness, helplessness or worthlessness. He did not express ideas reference, paranoid ideation or delusions. His thinking was concrete but his associations appeared goal directed. He did not appear to be responding to internal stimuli. Assessment: He is minimally cooperative and is denying psychiatric problems or need for hospitalization. Plan: Continue inpatient hospitalization. Continue Zoloft 50 mg daily and administer Zyprexa 2.5 mg IM if he refuses the oral dose. Continue Minipress 2 mg at bedtime in addition to melatonin 5 mg at bedtime. Haldol and/or Ativan for agitation, aggression acute psychosis Encourage compliance with prescribed medications including Zoloft 50 mg daily, Minipress 2 mg at bedtime, melatonin 5 mg at bedtime and Habitrol for smoking cessation. Encourage participation in therapeutic groups and activities. Evaluate clinical status response to treatment daily basis.
[2021-03-19] MEDS: MELATONIN 5 MG TABLET PO SCH (20:27)
[2021-03-19] MEDS: PRAZOSIN 1 MG CAP PO SCH (20:27)
[2021-03-20] MEDS ORDERED: WATER FOR INJECTION, STERILE 10 ML IV ONE (09:07)
[2021-03-20] MEDS: NICOTINE 14MG/24HR PATCH TRANSDERM SCH (09:09)
[2021-03-20] MEDS: OLANZapine 10 MG VIAL IM PRN (09:15)
[2021-03-20] MEDS: SERTRALINE 50 MG TAB PO SCH (09:15)
--- NOTE | 2021-03-20 14:07 | P.PN ---
Progress Note - Text Progress Note Date: 03/20/21 Clinical Problems: Major depressive disorder recurrent severe without psychotic features, rule out schizoaffective disorder depressed type, cannabis use disorder, history of closed head injury, noncompliance with mental health treatment Interim history: I reviewed the medical record interviewed and attempted to interview the patient. He again refused the morning dose of Zoloft. As per the treatment plan he didn't receive an IM injection of 2.5 mg of Zyprexa. He was resistant to the medication but did not become disruptive or aggressive. He would not get out of bed for the interview. He would not make eye contact and would not speak. Mental status exam: He again presented as an angry 41-year-old male who was uncooperative. He did made eye contact and did not appeared to attend to the exam. He had an angry facial expression. He had psychomotor retardation but no abnormal movements. His speech was mute. His affect was angry but not inappropriate. Due to his muteness was not able to evaluate his thought content, thought process or perception. Assessment: He is minimally cooperative and is denying psychiatric problems or need for hospitalization. Plan: Continue inpatient hospitalization. Continue Zoloft 50 mg daily and administer Zyprexa 2.5 mg IM if he refuses the oral dose. Continue Minipress 2 mg at bedtime in addition to melatonin 5 mg at bedtime. Haldol and/or Ativan for agitation, aggression acute psychosis Encourage compliance with prescribed medications including Zoloft 50 mg daily, Minipress 2 mg at bedtime, melatonin 5 mg at bedtime and Habitrol for smoking cessation. Encourage participation in therapeutic groups and activities. Evaluate clinical status response to treatment daily basis.
[2021-03-20] MEDS: PRAZOSIN 1 MG CAP PO SCH (21:54)
[2021-03-20] MEDS: MELATONIN 5 MG TABLET PO SCH (21:54)
[2021-03-21] MEDS: NICOTINE 14MG/24HR PATCH TRANSDERM SCH (08:31)
[2021-03-21] MEDS: OLANZapine 10 MG VIAL IM PRN (09:16)
[2021-03-21] MEDS: SERTRALINE 50 MG TAB PO SCH (09:22)
--- NOTE | 2021-03-21 12:02 | P.PN ---
Progress Note - Text Progress Note Date: 03/21/21 Clinical Problems: Major depressive disorder recurrent severe without psychotic features, rule out schizoaffective disorder depressed type, cannabis use disorder, history of closed head injury, noncompliance with mental health treatment Interim history: I reviewed the medical record interviewed and attempted to interview the patient. He again refused the morning dose of Zoloft. As per the treatment plan he didn't receive an IM injection of 2.5 mg of Zyprexa. He was not resistant to the injection. He again with Dr. Salomon interview. However, he made eye contact. He answered questions with 1 or 2 words but would not engage in a conversation. Mental status exam: He again presented as an angry 41-year-old male who was angry and uncooperative. He made eye contact and did not appeared to attend to the exam. He had an angry facial expression. He had psychomotor retardation but no abnormal movements. He spoke minimally and his speech was soft and very difficult to hear. His affect was angry but not inappropriate. Thought was was not able to evaluate his thought content, thought process or perception. Assessment: He is minimally cooperative and is denying psychiatric problems or need for hospitalization. Plan: Continue inpatient hospitalization. Continue Zoloft 50 mg daily and administer Zyprexa 2.5 mg IM if he refuses the oral dose. Continue Minipress 2 mg at bedtime in addition to melatonin 5 mg at bedtime. Haldol and/or Ativan for agitation, aggression acute psychosis Encourage compliance with prescribed medications including Zoloft 50 mg daily, Minipress 2 mg at bedtime, melatonin 5 mg at bedtime and Habitrol for smoking cessation. Encourage participation in therapeutic groups and activities. Evaluate clinical status response to treatment daily basis.
[2021-03-21] MEDS: PRAZOSIN 1 MG CAP PO SCH (20:25)
[2021-03-21] MEDS: MELATONIN 5 MG TABLET PO SCH (20:25)
[2021-03-22] MEDS: NICOTINE 14MG/24HR PATCH TRANSDERM SCH (08:48)
[2021-03-22] MEDS: SERTRALINE 50 MG TAB PO SCH (08:52)
[2021-03-22] MEDS: OLANZapine 10 MG VIAL IM PRN (08:57)
--- NOTE | 2021-03-22 10:12 | P.PN ---
Progress Note - Text Progress Note Date: 03/22/21 Interval History: Patient was seen this morning sitting in the lounge watching television. Olivia ent was reluctant to speak to medical writer in the office today however did follow medical writer and was agreeable to speak. Patient continues to be oppositional and argumentative about his medications and continues to believe that his medications are "poison" and does not want to talk about any medications. He states that all of them causes stomach to be upset. He states that he wants to be "clean from all medications". He continues to minimize his need for treatment. He also continues to state that the washroom attendant cant force him to take meds. He states that he does "just fine without them". Cluster Bore Operator spoke with patient about his court order and different medication options however patient continues to state that "my compromise is that you guys leave me alone and I dont need to take anything". He has poor reality testing and appears to have poor hygiene and grooming. He is denying any current suicidal thoughts however does appear to have a depressed affect and is irritable. Mental Status Exam: General Appearance: Patient appears to be older than stated age is alert, concrete. Unkempt, uncooperative Behavior: Uncooperative and dismissive. agrumentative Speech: Patient's speech is fluent and nonpressured. Monotone Mood/Affect: Unable to assess Suicidality/Homicidality: denies Perceptions: denies any Ah or VH Though content/process: Poverty of content, poverty of speech. [place]. Dismissive. argumentative and minizing his need for treatment. Memory and concentration: Unable to assess Judgment and insight: Poor Assessment major depressive disorder Noncompliance of medications. history of closed head injuries posttraumatic stress disorder Cannabis use disorder mild Plan: -Patient continues to meet criteria for inpatient psychiatric admission for symptom stabilization and safety. Patient has not signed adult voluntary form and was placed in patient's chart. -Medications: Zoloft 50 mg daily for mood/anxiety. Patient is court ordered, if patient refuses PO zoloft then he is to receive Zyprexa IM. Continue with prazosin 2 mg daily at bedtime for nightmares. melatonin 5 mg qhs. -When necessary Ativan and Haldol for agitation/aggression. Patient is still refusing PO meds and receiving IM Zyprexa -NRT - not needed as patient does not smoke -SW on board for discharge planning. Encouraged the patient to participate in milieu. Patient had court hearing on 03/17/21 which resulted in a court order for treatment. SW will attempt to reach out to Christa (VA liasion at [facility]) for options for dischrage to a VA program. At this time patient is refusing to any programs.
[2021-03-22] MEDS: PRAZOSIN 1 MG CAP PO SCH (21:20)
[2021-03-22] MEDS: MELATONIN 5 MG TABLET PO SCH (21:20)
--- NOTE | 2021-03-23 10:42 | P.PN ---
Progress Note - Text Progress Note Date: 03/23/21 Interval History: Patient was seen this morning sitting in the lounge talking in group. He was o bserved talking to another patient in group about court orders and the mental health code. He continues to appear to be unkempt and unshaven in appearance. He was approached by staff writer to speak in the office however he looked at staff writer and declined stating "no go away!". He continues to display some irritability and argumentativeness. After staff writer again tried to ask patient if he wanted to speak and patient again declined. Mental Status Exam: General Appearance: Patient appears to be older than stated age is alert, concrete. Unkempt, uncooperative Behavior: Uncooperative and dismissive. Agrumentative, irritable. Speech: Patient's speech is fluent and nonpressured. Monotone Mood/Affect: Unable to assess Suicidality/Homicidality: denies Perceptions: denies any Ah or VH Though content/process: Poverty of content, poverty of speech. [place]. Dismissive. Memory and concentration: Unable to assess Judgment and insight: Poor Assessment major depressive disorder Noncompliance of medications. history of closed head injuries posttraumatic stress disorder Cannabis use disorder mild Plan: -Patient continues to meet criteria for inpatient psychiatric admission for symptom stabilization and safety. Patient has not signed adult voluntary form and was placed in patient's chart. -Medications: continue with Zoloft PO 50 mg daily for mood/anxiety. Patient is court ordered, if patient refuses PO zoloft then he is to receive Zyprexa IM to help with irritability, anxiety and mood. Continue with prazosin 2 mg daily at bedtime for nightmares. melatonin 5 mg qhs. -When necessary Ativan and Haldol for agitation/aggression. -NRT - not needed as patient does not smoke -SW on board for discharge planning. Encouraged the patient to participate in milieu. Patient had court hearing on 03/17/21 which resulted in a court order for treatment. SW will attempt to reach out to Christa (VA liasion at [facility]) for options for dischrage to a VA program. At this time will ask Dr. Elizalde for a second opinion/evaluation. Will speak with treatment team about asking family member today to file for gaurdianship and patient continues to refuse care and placement as he is still uninterested and refusing to attend and any VA residential program
[2021-03-23] MEDS: NICOTINE 14MG/24HR PATCH TRANSDERM SCH (10:51)
[2021-03-23] MEDS: OLANZapine 10 MG VIAL IM PRN (11:08)
[2021-03-23] MEDS: SERTRALINE 50 MG TAB PO SCH (11:11)
--- NOTE | 2021-03-23 12:32 | P.CN ---
Psychiatric Consult - . Consult date: 03/23/21 Consult:: 03/23/21 12:27 IDENTIFYING DATA: This patient is a single, unemloyed, 41-year-old male who was admitted on a flower buncher or picker order due to nonadherence with treatment or follow-up for severe PTSD and depression. HISTORY OF PRESENT ILLNESS: The patient presented to the hospital on 03/03/2021, brought in on a pick-up order for nonadherence with his medication or his mental health appointments. During this hospitalization, the patient has been nonadherent with medications, individual, and milieu therapies. He has been prescribed a regimen of Zoloft and Prazosin but has been refusing oral medications despite a mental health court order. Zyprexa IM medication was placed in order to address his treatment resistant depression with medication he can be administered as part of the court order. Upon evaluation by this provider, the patient continues to present as both guarded and apathetic regarding his mental health, his physical health, or the desire to get better. He does acknowledge that he was driving erratically in the past but does not elaborate further in regards to his mood at the time. 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 When exploring prior suicidal ideation, the patient remains guarded and refuses to elaborate as well. Despite significant supportive psychotherapy and trauma informed care, the patient continues to be oppositional in both assessment and treatment. The patient states that he does not want to speak with anymore therapists or psychiatrists. He explicitly reports he does not want to be on any medications. He displays a lack of future-orientation. The patient maintains that all he thinks about while in the psychiatric unit is a desire to get a cigarette. He reports he does not want to spend his life taking medications. PAST PSYCHIATRIC HISTORY: The patient has a history of Major Depressive Disorder, Posttraumatic Stress Disorder, Cannabis Use Disorder, and a history of traumatic brain injuries. He has had several psychiatric inpatient admissions in the [place] prior to his initial presentation at [facility] in June 2020. He has had 3 inpatient psychiatric hospitalizations with [facility] since then. He was discharged from previous admissions on regimens including prozac, lithium, zyprexa, and minipress. PAST MEDICAL HISTORY: Past Medical History: No Reported History Additional Past Medical History / Comment(s): PTSD History of Any Multi-Drug Resistant Organisms: None Reported Past Surgical History: No Surgical Hx Reported Past Psychological History: Anxiety, Bipolar, PTSD Smoking Status: Current every day smoker Past Alcohol Use History: None Reported Past Drug Use History: Marijuana ALLERGIES: NO KNOWN DRUG ALLERGIES CHEMICAL DEPENDENCY HISTORY: Patient remians guarded regarding his susbstance use. He tested positive for cannabis use on 03/03/2021 despite informing the provider he had quit marijuana after his discharge in 01/13/2021. There is also a reported history of alcohol abuse. FAMILY PSYCHIATRIC/SUBSTANCE USE HISTORY: Patient remains guarded and refuses to elaborate. SOCIAL HISTORY: As per chart review, patient currently lives in [place], [place]. He has 3 children whom he gave up rights to. 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 [facility]. MENTAL STATUS EXAM: General Appearance: Patient appears to be stated age is alert, obstinate and guarded. Patient appears to have fair hygiene and grooming wearing hospital gown with intermittent to poor eye contact. Behavior: Patient is calmly lying in bed without any agitated behavior. Psychomotor slowing evident. Speech: Patient's speech is monotone, nonspontaneous, and viscous. Mood/Affect: Patient reports their mood is "I want to sleep and not be bothered anymore." Affect is withdrawn, irritable, and guarded. Suicidality/Homicidality: The patient is currently not overtly endorsing any suicidal or homicidal ideation, intention, and/or plan. Perceptions: Patient denies any visual hallucinations and denies any auditory hallucinations Though content/process: There is no evidence of any delusional thought content and thought process is linear and logical. He displays no future or goal orientation beyond discharge. Memory and concentration: AOX3, grossly intact for the purposes of this session. Judgment and insight: Poor IMPRESSIONS: Major Depressive Disorder, recurrent, severe Posttraumatic Stress Disorder Personality Disorder, unspecified ASSESSMENT: Patient is 41 year old male presenting with treatment resistant depression/PTSD as well as severe dysphoria with resistance towards medications and talk therapy. He lacks future orientation and is obstinate and refusing medication and talk therapy management. Despite this, patient does endorse these feelings he has are egodystonic. Affect is congruent with depression as he presents as withdrawn, irritable and guarded. Precipitating his current presentation is his lack of medication adherence and follow-up. Perpetuating his condition is likely an underlying personality disorder, lack of patient engagement due to his history of minimal to no improvement in his mental health despite medication management, substance use, and nonadherence with treatment. Prognosis is very guarded due to his numerous risk factors both modifiable and unmodifiable including his gender, race, history of trauma, past suicide attempts, and service history. At this time, the patient continues to refuse medications and has been receiving court-ordered treatment by way of IM Zyprexa which is an antipsychotic used to address treatment resistant depression. Staff should continue to engage in encouragement and discussion on the patient's options for treatment and strive to encourage the patient to engage in treatment that has been evidence-based and patient-centered. Trauma-informed care should continue to be paramount. The patient would likely benefit from more comprehensive services including services that specialize in addressing mental health. Due to his apparent lack of sense of wellbeing for himself, the patient may require guardianship as a form of paternalistic care. More invasive procedures for management of depression including TMS, ECT, and Ketamine infusions can be considered should the patient fail other treatment modalities.
[2021-03-23] MEDS: MELATONIN 5 MG TABLET PO SCH (21:42)
[2021-03-23] MEDS: PRAZOSIN 1 MG CAP PO SCH (21:42)
[2021-03-24] MEDS: NICOTINE 14MG/24HR PATCH TRANSDERM SCH (08:40)
[2021-03-24] MEDS ORDERED: WATER FOR INJECTION, STERILE 10 ML IV ONE ×2 (08:41→22:08)
[2021-03-24] MEDS: SERTRALINE 50 MG TAB PO SCH ×2 (08:46→21:52)
[2021-03-24] MEDS: OLANZapine 10 MG VIAL IM PRN ×2 (08:55→22:41)
--- NOTE | 2021-03-24 11:19 | P.PN ---
Progress Note - Text Progress Note Date: 03/24/21 Interval History: Patient was seen after team meeting today with clinical social worker Laura. Patient was seen at the bedside today and was sleeping. He was noted to continue to be refusing by mouth medications and receiving IM Zyprexa doses daily. She was attempted to be awoken by automotive service writer and appeared to be restless and anxious when awoken from his sleep. He continues to be argumentative and hostile towards automotive service writer and clinical social worker. He continues to display very poor insight into his condition and need for treatment. He continues to state that he is making "the right decisions". He has very poor hygiene and grooming and continues to refuse to shower and care for himself. He asked if he can go home today and states that "you guys don't need to call my mother I can walk home". He refused answer any questions related to his sleep and also his mood or any suicidal thoughts today. stoneworker and automotive service writer spoke with patient about his lack of capacity to make decisions and the need for filing for guardianship and patient continues to argue stating that "you guys think I'm not making the right decisions but you have no proof of that". Patient told the automotive service writer and clinical social worker to leave his room and refused to answer any other questions. Mental Status Exam: General Appearance: Patient appears to be older than stated age is alert, concrete. Unkempt, uncooperative. Hostile Behavior: Uncooperative and dismissive. Agrumentative, irritable. Speech: Patient's speech is fluent and nonpressured. Monotone Mood/Affect: Unable to assess Suicidality/Homicidality: denies Perceptions: denies any Ah or VH Though content/process: Poverty of content, very poor insight into his condition. [place]. Dismissive. Focused on discharge Memory and concentration: Unable to assess Judgment and insight: Poor Assessment major depressive disorder Noncompliance of medications. history of closed head injuries posttraumatic stress disorder Cannabis use disorder mild Plan: -Patient continues to meet criteria for inpatient psychiatric admission for symptom stabilization and safety. Patient has not signed adult voluntary form and was placed in patient's chart. -Medications: continue with Zoloft PO 50 mg QHS for mood/anxiety. Patient is court ordered, if patient refuses PO zoloft then he is to receive Zyprexa IM to help with irritability, anxiety and mood. d/c prazosin. melatonin 5 mg qhs. -When necessary Ativan and Haldol for agitation/aggression. -NRT - not needed as patient does not smoke -Dr Elizalde did an independent evaluation on 03/23/21, please refer to his note for further details. -SW on board for discharge planning. Encouraged the patient to participate in milieu. Patient had court hearing on 03/17/21 which resulted in a court order for treatment. Christa (VA liasion at [facility]) will meet with patient today to discuss options and make further recommendartions about patients treatment and possible programs that patient may be eligible for through the [facility]. Will likely need to proceed with public guardianship.
[2021-03-24] MEDS: MELATONIN 5 MG TABLET PO SCH (22:07)
--- NOTE | 2021-03-25 10:18 | P.PN ---
Progress Note - Text Progress Note Date: 03/25/21 Interval History: Patient was seen today this morning laying on the couch in the lounge with other patients. Eap Clinician approached patient to see if he wanted to be interviewed today and speak with rider however patient acknowledges rider briefly and states "no" and also stated "I never want to talk to you". He then turned his head and continued watching television and ignored information writer. Mental Status Exam: General Appearance: Patient appears to be older than stated age is alert, concrete. Unkempt, uncooperative. Hostile Behavior: Uncooperative and dismissive. irritable. Speech: Patient's speech is fluent and nonpressured. Monotone Mood/Affect: Unable to assess Suicidality/Homicidality: denies Perceptions: denies any Ah or VH Though content/process: Poverty of content, very poor insight into his condition. [place]. Dismissive. Memory and concentration: Unable to assess Judgment and insight: Poor Assessment major depressive disorder Noncompliance of medications. history of closed head injuries posttraumatic stress disorder Cannabis use disorder mild Plan: -Patient continues to meet criteria for inpatient psychiatric admission for symptom stabilization and safety. Patient has not signed adult voluntary form and was placed in patient's chart. -Medications: continue with Zoloft PO 50 mg QHS for mood/anxiety. Patient is court ordered, if patient refuses PO zoloft then he is to receive Zyprexa IM to help with irritability, anxiety and mood. d/c prazosin. melatonin 5 mg qhs. -When necessary Ativan and Haldol for agitation/aggression. -NRT - not needed as patient does not smoke -Dr Elizalde did an independent evaluation on 03/23/21, please refer to his note for further details. -CAMRYN on board for discharge planning. Encouraged the patient to participate in milieu. Patient had court hearing on 03/17/21 which resulted in a court order for treatment. Will await to hear what Christa ([facility] liasion at [facility]) discussed with patient about potential VA options for residential programs. CAMRYN will be filing for public gaurdianship as patient does not have capacity to make decisions
[2021-03-25] MEDS: SERTRALINE 50 MG TAB PO SCH (21:55)
[2021-03-25] MEDS ORDERED: WATER FOR INJECTION, STERILE 10 ML IV ONE (22:06)
[2021-03-25] MEDS: OLANZapine 10 MG VIAL IM PRN (22:11)
[2021-03-25] MEDS: MELATONIN 5 MG TABLET PO SCH (22:23)
--- NOTE | 2021-03-26 11:10 | P.PN ---
Progress Note - Text Progress Note Date: 03/26/21 Interval History: Patient was seen today this morning walking down the hallway and acknowledge theron griggs when he was approached by him. Patient initially states that he did not want to talk the junior copywriter today and claimed "there is no point". Machine Quilt Stuffer attempted again to speak with the patient and patient stopped in the hallway briefly to speak with junior copywriter. He continues to appear to be disheveled in appearance and irritable and hostile with junior copywriter. He continues to have very poor understanding of his need for treatment and appeared to have a depressed affect. He states that "you guys need to just leave me alone". And continues to speak about being "poisoned". He states that he does not trust staff members on the unit including junior copywriter. He accused junior copywriter of being "friends with the trial judge" and teaming up on him to give him the court order. He states that he is not sleeping well and denies any Ah or Vh and denies any Si or Hi today. He terminated interview by walking away. He continues to refuse to shower. Mental Status Exam: General Appearance: Patient appears to be older than stated age is alert, concrete. Unkempt, uncooperative. Hostile Behavior: Uncooperative and dismissive. irritable. Speech: Patient's speech is fluent and nonpressured. Monotone Mood/Affect: Unable to assess Suicidality/Homicidality: denies Perceptions: denies any Ah or VH Though content/process: Poverty of content, very poor insight into his condition. [place]. Dismissive. Memory and concentration: Unable to assess Judgment and insight: Poor Assessment major depressive disorder Noncompliance of medications. history of closed head injuries posttraumatic stress disorder Cannabis use disorder mild Plan: -Patient continues to meet criteria for inpatient psychiatric admission for symptom stabilization and safety. Patient has not signed adult voluntary form and was placed in patient's chart. -Medications: continue with Zoloft PO 50 mg QHS for mood/anxiety. Patient is court ordered, if patient refuses PO zoloft then he is to receive Zyprexa IM to help with irritability, anxiety and mood. d/c prazosin. melatonin 5 mg qhs. -When necessary Ativan and Haldol for agitation/aggression. -NRT - not needed as patient does not smoke -Dr Elizalde did an independent evaluation on 03/23/21, please refer to his note for further details. -SW on board for discharge planning. Encouraged the patient to participate in milieu. Attempting several times to engage patient in treatment however patient continues to refuse to speak with a therapist or take medications and is reveiving IM zyprexa every night. Patient had court hearing on 03/17/21 which resulted in a court order for treatment. Continue with filing of gaurdianship paperwork with the courts. Will continue with trying to transfer patient to [place] inpatient psych as patient is continuing to be depressed, irritable and poor self care (signs of ongoing depression) and would greatly benefit from more comprehensive care at [place] facility.
[2021-03-26] MEDS: SERTRALINE 50 MG TAB PO SCH ×2 (20:34→21:41)
[2021-03-26] MEDS: MELATONIN 5 MG TABLET PO SCH (20:34)
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
[2021-03-27] MEDS: SERTRALINE 50 MG TAB PO SCH (20:37)
[2021-03-27] MEDS: MELATONIN 5 MG TABLET PO SCH (20:40)
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
[2021-03-28] MEDS: SERTRALINE 50 MG TAB PO SCH (20:44)
[2021-03-28] MEDS: MELATONIN 5 MG TABLET PO SCH (20:45)
--- NOTE | 2021-03-29 11:43 | P.PN ---
Progress Note - Text Progress Note Date: 03/29/21 Interval History: Patient was seen today this morning playing cards during activity group with o ther patients. Crisis Worker approach patient to speak with him today however patient turned her keno writer acknowledged him and stated briefly "no thanks" turned away and resume playing cards. Crisis Worker attempted once again to speak with patient however patient continued to refuse to speak. Patient has been noticed by staff to be participating in groups more and more cooperative and visible on the unit. He has also been reported to be sleeping better at night time. Patient also has been taking his Zoloft now for 2 days. Mental Status Exam: General Appearance: Patient appears to be older than stated age is alert, concrete. Unkempt, uncooperative. Behavior: Uncooperative and dismissive. Less irritable Speech: Patient's speech is fluent and nonpressured. Monotone Mood/Affect: Unable to assess Suicidality/Homicidality: Unable to assess Perceptions: Unable to assess Though content/process: Poverty of content, poor insight into his condition. [place]. Dismissive. Memory and concentration: Unable to assess Judgment and insight: Poor Assessment major depressive disorder Noncompliance of medications. history of closed head injuries posttraumatic stress disorder Cannabis use disorder mild Plan: -Patient continues to meet criteria for inpatient psychiatric admission for symptom stabilization and safety. Patient has not signed adult voluntary form and was placed in patient's chart. -Medications: continue with Zoloft PO 50 mg QHS for mood/anxiety. Patient is court ordered, if patient refuses PO zoloft then he is to receive Zyprexa IM to help with irritability, anxiety and mood. melatonin 5 mg qhs. -When necessary Ativan and Haldol for agitation/aggression. -NRT - not needed as patient does not smoke -Dr Elizalde did an independent evaluation on 03/23/21, please refer to his note for further details. -SW on board for discharge planning. Encouraged the patient to participate in milieu. Attempting several times to engage patient in treatment however patient continues to refuse to speAK WITH COLLET GLUER. Patient had court hearing on 03/17/21 which resulted in a court order for treatment. Continue with filing of gaurdianship paperwork with the courts today at the court house by CAMRYN. Will hold off on transfer to [place] inpt psych as patient is starting to engage a bit more with treatment and take medications. Patient has been showing mild improvement overall however continues to be very high risk of non compliance upon discharge. Informed [facility] that patient must have an intake on the unit and be connected with ACT team upon d/c.
[2021-03-29] MEDS: SERTRALINE 50 MG TAB PO SCH (21:22)
[2021-03-29] MEDS: MELATONIN 5 MG TABLET PO SCH ×2 (21:23→21:31)
--- NOTE | 2021-03-30 10:31 | P.PN ---
Progress Note - Text Progress Note Date: 03/30/21 Interval History: Patient was seen today this morning sitting in the lounge watching television. Patient was approached by entry writer today for an interview however patient initially states "no" and refused to participate. Medical Examiner attempted once again to speak to patient and ask him more specific questions to engage with patient and patient was responding to entry writer. He continues to be concrete and argumentative with entry writer and continues to state that she does not feel that the medication will help him and continues to have a negative perception of the court system and the power transmission engineer and also being in the hospital. He continues to state that he does not feel he needs medications. He claims that his mood is "fine" however has a constricted and upset affect. He is denying any anxiety today. He states that he is not sleeping well however is not willing to take any medication for it. He denied having any guns or weapons in his house. He continues to refuse to agree to follow-up with [facility] and to do therapy because "nothing works for me". He is denying any current suicidal thoughts or ho micidal thoughts intent or plan. He is denying any auditory or visual hallucinations today. Mental Status Exam: General Appearance: Patient appears to be older than stated age is alert, concrete. Unkempt, mildly more cooperative today. Behavior: Dismissive initially. Less irritable. Mildly more cooperative today Speech: Patient's speech is fluent and nonpressured. Mood/Affect: "Fine" and affect is constricted. Suicidality/Homicidality: Denies Perceptions: Denies Though content/process: Poverty of content, poor insight into his condition. [place]. Dismissive. Memory and concentration: Alert and oriented 3, fair attention span. Judgment and insight: Poor Assessment major depressive disorder Noncompliance of medications. history of closed head injuries posttraumatic stress disorder Cannabis use disorder mild Plan: -Patient continues to meet criteria for inpatient psychiatric admission for symptom stabilization and safety. Patient has not signed adult voluntary form and was placed in patient's chart. -Medications: Increase Zoloft PO 100 mg QHS for mood/anxiety. Patient is court ordered, if patient refuses PO zoloft then he is to receive Zyprexa IM to help with irritability, anxiety and mood. melatonin 5 mg qhs. -When necessary Ativan and Haldol for agitation/aggression. -NRT - not needed as patient does not smoke -Dr Elizalde did an independent evaluation on 03/23/21, please refer to his note for further details. -SW on board for discharge planning. Encouraged the patient to participate in milieu.Patient had court hearing on 03/17/21 which resulted in a court order for treatment. Continue with filing of gaurdianship paperwork with the courts. Will hold off on transfer to [place] inpt psych as patient is starting to engage a bit more with treatment and take medications. Patient has been showing very mild improvement overall however continues to be very high risk of non compliance upon discharge and re-hospitalization. Informed [facility] that patient must have an intake on the unit and be connected with ACT team upon d/c. likely discharge in 2-3 days.
[2021-03-30] MEDS: SERTRALINE 100 MG TAB PO SCH (21:03)
[2021-03-30] MEDS: MELATONIN 5 MG TABLET PO SCH (21:04)
[2021-03-31 07:11] VITALS: BP 107/74; PULSE 92; RESP 16; TEMP 99.1
--- NOTE | 2021-03-31 11:50 | P.PN ---
Progress Note - Text Progress Note Date: 03/31/21 Interval History: Patient was seen today this morning playing cards during activity group with o ther patients. Correctional Probation Officer approached patient to speak today however patient barely acknowledges health science writer and stated "I don't feel like talking much today doc". He appeared to be fairly busy in his game and was fairly distracted and did not want to speak more to health science writer. Correctional Probation Officer did offer to come back later on if patient did feel that he wanted to speak. Mental Status Exam: General Appearance: Patient appears to be older than stated age is alert, concrete. Mildly more cooperative today Behavior: Uncooperative and dismissive, improving mildly. Less irritable Speech: Patient's speech is fluent and nonpressured. Mood/Affect: Unable to assess Suicidality/Homicidality: Unable to assess Perceptions: Unable to assess Though content/process: Poverty of content, poor insight into his condition. [place]. Dismissive, improving mildly Memory and concentration: Unable to assess Judgment and insight: Poor, improving mildly Assessment major depressive disorder Non-compliance of medications history of closed head injuries posttraumatic stress disorder Cannabis use disorder mild Plan: -Patient continues to meet criteria for inpatient psychiatric admission for symptom stabilization and safety. Patient has not signed adult voluntary form and was placed in patient's chart. -Medications: Continue with Zoloft PO 100 mg QHS for mood/anxiety. Patient is court ordered, if patient refuses PO zoloft then he is to receive Zyprexa IM to help with irritability, anxiety and mood. melatonin 5 mg qhs. -When necessary Ativan and Haldol for agitation/aggression. -NRT - not needed as patient does not smoke -Dr Elizalde did an independent evaluation on 03/23/21, please refer to his note for further details. -SW on board for discharge planning. Encouraged the patient to participate in milieu. Attempting several times to engage patient in treatment however patient continues to refuse to speAK WITH MILK AND CREAM GRADER. Patient had court hearing on 03/17/21 which resulted in a court order for treatment. Continue with filing of gaurdianship paperwork with the courts. Patient has been showing mild improvement overall however continues to be very high risk of non compliance upon discharge and re-hospitalization. [facility] will have ACT team upon d/c tomorrow to meet with patient to establish care and contact. likely discharge tomorrow.
[2021-03-31] MEDS: MELATONIN 5 MG TABLET PO SCH (20:32)
[2021-03-31] MEDS: SERTRALINE 100 MG TAB PO SCH (20:32)
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
== END 2021-04-01 11:55 | disposition home or self-care (01) | DRG 885 ==
LOC: EC 20:53 → 3MHU 03-03 04:03
PROVIDERS: ADMIT Psychiatry & Neurology Psychiatry; ATTEND Psychiatry & Neurology Psychiatry
DX: F33.2 Major depressive disorder, recurrent severe without psychotic features (principal); G25.9 Extrapyramidal and movement disorder, unspecified; F43.10 Post-traumatic stress disorder, unspecified; F12.10 Cannabis abuse, uncomplicated; F17.210 Nicotine dependence, cigarettes, uncomplicated; G89.29 Other chronic pain; M25.569 Pain in unspecified knee; M54.9 Dorsalgia, unspecified; M25.519 Pain in unspecified shoulder; F41.9 Anxiety disorder, unspecified; M25.512 Pain in left shoulder; M25.511 Pain in right shoulder; M25.562 Pain in left knee; M25.561 Pain in right knee; F60.9 Personality disorder, unspecified; Z79.899 Other long term (current) drug therapy; Z91.19 Patient's noncompliance with other medical treatment and regimen; Z91.14 Patient's other noncompliance with medication regimen
CPT/HCPCS: 80306; 81001; 82075; 99285

== ENCOUNTER 2022-09-30 17:47 | Emergency (ER) | payer MEDICARE, MEDICAID ==
[2022-09-30 18:44] VITALS: TEMP 98.3
[2022-09-30] MEDS ORDERED: KETOROLAC 15 MG/ML 1 ML VIAL IVP STA (19:51)
[2022-09-30] MEDS ORDERED: SODIUM CHLORIDE 0.9% 1,000 ML IV STA (19:51)
[2022-09-30] MEDS ORDERED: LORazepam 2 MG/ML INJ IV STA (19:52)
--- NOTE | 2022-09-30 19:59 | ED ---
Abdominal Pain HPI - General Chief Complaint: Abdominal Pain Stated Complaint: abd pain Time Seen by Provider: 09/30/22 19:40 Source: patient, RN notes reviewed, old records reviewed Mode of arrival: ambulatory Limitations: no limitations - History of Present Illness Initial Comments: This is a 42-year-old male that is screaming out in room 32. Coming in with complaints of nausea vomiting and lower left abdominal pain that woke him from sleep today. Patient is not cooperative and not willing to answer questions. He states that the pain is similar to a kidney stone in the past, radiating into his left lower back and left testicle. Will not provide any further information. Would not cooperate with the physical exam. Poor eye contact. Medical records show a history of depression, psychosis and PTSD. MD Complaint: abdominal pain (left lower) -: days(s) (1) Location: LLQ Radiation: L flank, other (left testicle) Severity scale (1-10): 10 Quality: other (states unable to describe) Improves With: nothing Associated Symptoms: denies other symptoms - Related Data Home Medications Medication Instructions Recorded Confirmed Ibuprofen [Motrin] 800 mg PO TID PRN 03/02/21 03/03/21 Previous Rx's Medication Instructions Recorded Acetaminophen Tab [Tylenol] 650 mg PO Q4HR PRN tab 04/01/21 Melatonin 5 mg PO HS 14 Days tablet 04/01/21 Sertraline [Zoloft] 100 mg PO HS 14 Days tab 04/01/21 Ibuprofen [Motrin] 600 mg PO Q8HR PRN #30 tab 09/30/22 Tamsulosin [Flomax] 0.4 mg PO DAILY 14 Days #14 cap 09/30/22 Allergies Allergy/AdvReac Type Severity Reaction Status Date / Time No Known Allergies Allergy Verified 09/30/22 18:44 Review of Systems ROS Statement: Those systems with pertinent positive or pertinent negative responses have been documented in the HPI. ROS Other: All systems not noted in ROS Statement are negative. Past Medical History Past Medical History: No Reported History Additional Past Medical History / Comment(s): PTSD History of Any Multi-Drug Resistant Organisms: None Reported Past Surgical History: No Surgical Hx Reported Past Psychological History: Anxiety, Bipolar, PTSD Smoking Status: Current every day smoker Past Alcohol Use History: Occasional Past Drug Use History: Marijuana General Exam Limitations: no limitations General appearance: alert Head exam: Present: atraumatic Eye exam: Absent: scleral icterus, conjunctival injection Respiratory exam: Absent: respiratory distress, accessory muscle use Cardiovascular Exam: Present: tachycardia GI/Abdominal exam: Present: soft, tenderness (LLQ). Absent: distended, rigid Neurological exam: Present: alert, normal gait Psychiatric exam: Present: agitated (screaming out) Skin exam: Present: warm, dry, normal color. Absent: cyanosis, diaphoretic, petechiae, pallor Course Vital Signs 09/30/22 09/30/22 18:40 23:49 Temperature 98.3 F Pulse Rate 107 H 76 Respiratory 20 16 Rate Blood Pressure 137/81 127/85 O2 Sat by Pulse 99 97 Oximetry Medical Decision Making - Medical Decision Making KUB x-ray interpreted by me shows no evidence of obstruction or abnormal calcifications. Radiologist impression nonacute abdomen. Labs show a mild leukocytosis of 14.6, lactic acid of 4.2, electrolytes are unremarkable. Urinalysis shows no evidence of urinary tract infection, large blood. CT was performed showing a small obstructing calculus distal left ureter measuring 3 mm. Mild left-sided hydronephrosis and hydroureter. Small left renal calculus. Patient was given Ativan for his agitation, IV fluids, Toradol and Dilaudid with pain relief. Lactic acid repeated and 1.0. Patient remorseful about initial agitation and apologetic. He was prescribed Motrin and Flomax directed to follow up with urology. Return to the emergency room with any new or concerning symptoms. He is agreeable to this plan of care. Vital signs are stable at discharge. Ambulatory with steady gait. Tolerating orals. Case discussed with Dr. Couch Was pt. sent in by a medical professional or institution (, PA, MINISTER OF RELIGION, urgent care, hospital, or senior care...) When possible be specific @ -[No] Did you speak to anyone other than the patient for history (EMS, parent, family, police, friend...)? What history was obtained from this source @ -[No] Did you review nursing and triage notes (agree or disagree)? Why? @ -[I reviewed and agree with nursing and triage notes] Were old charts reviewed (outside hosp., previous admission, EMS record, old EKG, old radiological studies, urgent care reports/EKG's, senior care records)? Report findings @ -[No old charts were reviewed] Differential Diagnosis (chest pain, altered mental status, abdominal pain women, abdominal pain men, vaginal bleeding, weakness, fever, dyspnea, syncope, headache, dizziness, GI bleed, back pain, seizure, CVA, palpatations, mental health, musculoskeletal)? @ Differential Back Pain: Strain, zoster, cauda equina syndrome, epidural abscess, vertebral osteomyelitis, discitis, fracture, subluxation, disc herniation, DJD, spinal st enosis, dissection, AAA, pancreatitis, peptic ulcer disease, pyelonephritis, kidney stone, this is not meant to be an all-inclusive list. EKG interpreted by me (3pts min.). @ -n/a X-rays interpreted by me (1pt min.). @ -yes as above CT interpreted by me (1pt min.). @ yes distal left ureter calculus mild hydronephrosis U/S interpreted by me (1pt. min.). @ -[None done] What testing was considered but not performed or refused? (CT, X-rays, U/S, labs)? Why? @ -[None] What meds were considered but not given or refused? Why? @ -aantibiotics considered however there is no evidence of UTI or concern for septic stone Did you discuss the management of the patient with other professionals (professionals i.e. , PA, MINISTER OF RELIGION, lab, RT, psych nurse, social media community manager, director regulatory compliance, teacher, probation officer, case maker)? Give summary @ -[No] Was smoking cessation discussed for >3mins.? @ -[No] Was critical care preformed (if so, how long)? @ -[No] Were there social determinants of health that impacted care today? How? (Homelessness, low income, unemployed, alcoholism, drug addiction, transportation, low edu. Level, literacy, decrease access to med. care, assisted, rehab)? @ -[No] Was there de-escalation of care discussed even if they declined (Discuss DNR or withdrawal of care, Hospice)? DNR status @ -[No] What co-morbidities impacted this encounter? (DM, HTN, Smoking, COPD, CAD, Cancer, CVA, ARF, Chemo, Hep., AIDS, mental health diagnosis, sleep apnea, morbid obesity)? @ -PTSD, depression Was patient admitted / discharged? Hospital course, mention meds given and route, prescriptions, significant lab abnormalities, going to OR and other pertinent info. @ -discharged Undiagnosed new problem with uncertain prognosis? @ -[No] Drug Therapy requiring intensive monitoring for toxicity (Heparin, Nitro, Insulin, Cardizem)? @ -[No] Were any procedures done? @ -[No] Diagnosis/symptom? @ kidney stone Acute, or Chronic, or Acute on Chronic? @ acute Uncomplicated (without systemic symptoms) or Complicated (systemic symptoms)? @ uncomplicated Side effects of treatment? @ -[No] Exacerbation, Progression, or Severe Exacerbation? @ -[No] Poses a threat to life or bodily function? How? (Chest pain, [place], MT, pneumonia, PE, COPD, DKA, ARF, appy, cholecystitis, CVA, Diverticulitis, Homicidal, [place] icidal, threat to staff... and all critical care pts) @ -[No] - Lab Data Result diagrams: 09/30/22 20:09 09/30/22 20:09 Lab Results 09/30/22 09/30/22 09/30/22 Range/Units 20:09 20:09 20:09 WBC 14.6 H (3.8-10.6) k/uL RBC 5.64 (4.30-5.90) m/uL Hgb 17.1 (13.0-17.5) gm/dL Hct 50.2 (39.0-53.0) % MCV 89.0 (80.0-100.0) fL MCH 30.4 (25.0-35.0) pg MCHC 34.1 (31.0-37.0) g/dL RDW 12.7 (11.5-15.5) % Plt Count 449 (150-450) k/uL MPV 7.8 Neutrophils % 75 % Lymphocytes % 17 % Monocytes % 5 % Eosinophils % 1 % Basophils % 1 % Neutrophils # 10.9 H (1.3-7.7) k/uL Lymphocytes # 2.4 (1.0-4.8) k/uL Monocytes # 0.8 (0-1.0) k/uL Eosinophils # 0.2 (0-0.7) k/uL Basophils # 0.1 (0-0.2) k/uL Sodium 142 (137-145) mmol/L Potassium 4.0 (3.5-5.1) mmol/L Chloride 107 (98-107) mmol/L Carbon Dioxide 23 (22-30) mmol/L Anion Gap 12 mmol/L BUN 14 (9-20) mg/dL Creatinine 1.12 (0.66-1.25) mg/dL Est GFR (CKD-EPI)AfAm >90 (>60 ml/min/1.73 sqM) Est GFR (CKD-EPI)NonAf 82 (>60 ml/min/1.73 sqM) Glucose 131 H (74-99) mg/dL Lactic Ac Sepsis Rflx Plasma Lactic Acid Rick 4.2 H* (0.7-2.0) mmol/L Calcium 9.8 (8.4-10.2) mg/dL Total Bilirubin 0.6 (0.2-1.3) mg/dL AST 24 (17-59) U/L ALT 27 (4-49) U/L Alkaline Phosphatase 96 (38-126) U/L Total Protein 8.0 (6.3-8.2) g/dL Albumin 4.6 (3.5-5.0) g/dL Amylase 62 (30-110) U/L Lipase 119 (23-300) U/L Urine Color Urine Appearance (Clear) Urine pH (5.0-8.0) Ur Specific [place] (1.001-1.035) Urine Protein (Negative) Urine Glucose (UA) (Negative) Urine Ketones (Negative) Urine Blood (Negative) Urine Nitrite (Negative) Urine Bilirubin (Negative) Urine Urobilinogen (<2.0) mg/dL Ur Leukocyte Esterase (Negative) Urine RBC (0-5) /hpf Urine WBC (0-5) /hpf Ur Squamous Epith Cells (0-4) /hpf Hyaline Casts (0-2) /lpf Urine Mucus (None) /hpf 09/30/22 09/30/22 09/30/22 Range/Units 21:31 22:16 23:22 WBC (3.8-10.6) k/uL RBC (4.30-5.90) m/uL Hgb (13.0-17.5) gm/dL Hct (39.0-53.0) % MCV (80.0-100.0) fL MCH (25.0-35.0) pg MCHC (31.0-37.0) g/dL RDW (11.5-15.5) % Plt Count (150-450) k/uL MPV Neutrophils % % Lymphocytes % % Monocytes % % Eosinophils % % Basophils % % Neutrophils # (1.3-7.7) k/uL Lymphocytes # (1.0-4.8) k/uL Monocytes # (0-1.0) k/uL Eosinophils # (0-0.7) k/uL Basophils # (0-0.2) k/uL Sodium (137-145) mmol/L Potassium (3.5-5.1) mmol/L Chloride (98-107) mmol/L Carbon Dioxide (22-30) mmol/L Anion Gap mmol/L BUN (9-20) mg/dL Creatinine (0.66-1.25) mg/dL Est GFR (CKD-EPI)AfAm (>60 ml/min/1.73 sqM) Est GFR (CKD-EPI)NonAf (>60 ml/min/1.73 sqM) Glucose (74-99) mg/dL Lactic Ac Sepsis Rflx Y Plasma Lactic Acid Rick 1.0 (0.7-2.0) mmol/L Calcium (8.4-10.2) mg/dL Total Bilirubin (0.2-1.3) mg/dL AST (17-59) U/L ALT (4-49) U/L Alkaline Phosphatase (38-126) U/L Total Protein (6.3-8.2) g/dL Albumin (3.5-5.0) g/dL Amylase (30-110) U/L Lipase (23-300) U/L Urine Color Yellow Urine Appearance Turbid (Clear) Urine pH 5.5 (5.0-8.0) Ur Specific [place] 1.036 H (1.001-1.035) Urine Protein 2+ H (Negative) Urine Glucose (UA) Negative (Negative) Urine Ketones 1+ H (Negative) Urine Blood Large H (Negative) Urine Nitrite Negative (Negative) Urine Bilirubin Negative (Negative) Urine Urobilinogen 3.0 (<2.0) mg/dL Ur Leukocyte Esterase Negative (Negative) Urine RBC 11 H (0-5) /hpf Urine WBC 3 (0-5) /hpf Ur Squamous Epith Cells 1 (0-4) /hpf Hyaline Casts 5 H (0-2) /lpf Urine Mucus Many H (None) /hpf Disposition Clinical Impression: Kidney stone on left side, Hydronephrosis Disposition: HOME SELF-CARE Condition: Good Instructions (If sedation given, give patient instructions): Kidney Stones (ED) Additional Instructions: Increase your fluid intake. Take Flomax as prescribed. Tylenol and /or Motrin for pain. Follow-up with urology next week. Return to the emergency room with any new or concerning symptoms including increased pain, fevers or persistent nausea vomiting. Prescriptions: Tamsulosin [Flomax] 0.4 mg PO DAILY 14 Days #14 cap Ibuprofen [Motrin] 600 mg PO Q8HR PRN #30 tab PRN Reason: Pain Is patient prescribed a controlled substance at d/c from ED?: No Referrals: None,Stated [Primary Care Provider] - 1-2 days Robert Silva MD [STAFF PHYSICIAN] - 1-2 days Time of Disposition: 00:12
--- NOTE | 2022-09-30 20:25 | XR ---
EXAMINATION TYPE: XR KUB DATE OF EXAM: 09/30/2022 COMPARISON: NONE HISTORY: Abdominal pain TECHNIQUE: 2 views FINDINGS: 2 views upright were obtained and show no sign of intestinal obstruction or pneumoperitoneu m. Fecal pattern is normal. No sign of a mass. No pathologic calcification over the kidneys. Lung bas es are clear. IMPRESSION: Nonacute abdomen.
[2022-09-30 20:37] LABS: Basophils # (A) 0.1 k/uL (0-0.2); Basophils % (A) 1 %; Eosinophils # (A) 0.2 k/uL (0-0.7); Eosinophils % (A) 1 %; HCT 50.2 % (39.0-53.0); HGB 17.1 gm/dL (13.0-17.5); Lymphocytes # (A) 2.4 k/uL (1.0-4.8); Lymphocytes % (A) 17 %; MCH 30.4 pg (25.0-35.0); MCHC 34.1 g/dL (31.0-37.0); Mean Platelet Volume 7.8; Monocytes # (A) 0.8 k/uL (0-1.0); Monocytes % (A) 5 %; Neutrophils # (A) 10.9 k/uL (1.3-7.7); Neutrophils % (A) 75 %; Platelet Count 449 k/uL (150-450); RBC 5.64 m/uL (4.30-5.90); RDW 12.7 % (11.5-15.5); WBC 14.6 k/uL (3.8-10.6)
[2022-09-30 20:58] LABS: ALT 27 U/L (4-49); AST 24 U/L (17-59); African American GFR (CKD) >90 (>60 ml/min/1.73 sqM); Albumin 4.6 g/dL (3.5-5.0); Alkaline Phosphatase 96 U/L (38-126); Amylase 62 U/L (30-110); Anion Gap 12 mmol/L; Blood Urea Nitrogen 14 mg/dL (9-20); Calcium 9.8 mg/dL (8.4-10.2); Carbon Dioxide 23 mmol/L (22-30); Chloride 107 mmol/L (98-107); Glucose 131 mg/dL (74-99); Lipase 119 U/L (23-300); Non-African American GFR(CKD) 82 (>60 ml/min/1.73 sqM); Sodium 142 mmol/L (137-145); Total Bilirubin 0.6 mg/dL (0.2-1.3)
[2022-09-30] MEDS ORDERED: SODIUM CHLORIDE 0.9% 1,000 ML IV ONE (21:36)
--- NOTE | 2022-09-30 21:40 | CT ---
EXAMINATION TYPE: CT abdomen pelvis wo con DATE OF EXAM: 09/30/2022 COMPARISON: Kidney stone. Pain HISTORY: Suspected Kidney Stone. CT DLP: 1168.4 mGycm Automated exposure control for dose reduction was used. Images obtained from the diaphragm to the floor the pelvis with no contrast. The lung bases are clear of consolidation. No pleural effusion. Heart size is normal. No pericardial effusion. There is mild subsegmental atelectasis right lung base. Liver spleen and stomach pancreas and gallbladder appear intact. The bile ducts are not dilated. There is no adrenal mass. Kidneys have normal size and contour. There is 3 mm calculus lower pole lef t kidney. There is mild left side hydronephrosis and hydroureter. There is 3 mm obstructing calculus at the left ureterovesical junction. Bladder distends smoothly. No inguinal hernia. No free fluid in the pelvis. There is 1 cm prostatic calcification. No mesenteric edema. No ascites or free air. No sign of a bowel obstruction. Appendix is posterior an d appears normal. There is 1.5 cm cyst anterior spleen. The lumbar vertebrae have normal alignment. No compression fracture. The posterior elements are intac t. No focal bone destruction. Bony pelvis is intact. The hip joints are intact. IMPRESSION: Small obstructing calculus distal left ureter. Mild left-sided hydronephrosis and hydroureter. Small left renal calculus. Normal appendix.
[2022-09-30] MEDS ORDERED: HYDROmorphone 0.5 MG/0.5 ML SYRINGE IVP STA (22:10)
[2022-09-30 22:50] LABS: Appearance,Urine Turbid (Clear); Bilirubin,Urine Negative (Negative); Blood,Urine Large (Negative); Color,Urine Yellow; Glucose,Urine (UA) Negative (Negative); Hyaline Casts,Urine 5 /lpf (0-2); Ketones,Urine 1+ (Negative); Leukocyte Esterase,Urine Negative (Negative); Mucus,Urine Many /hpf; Nitrite,Urine Negative (Negative); PH, Urine 5.5 (5.0-8.0); Protein,Urine 2+ (Negative); RBC,Urine 11 /hpf (0-5); Specific Gravity,Urine 1.036 (1.001-1.035); Squamous Epithelial Cell,Urine 1 /hpf (0-4); WBC,Urine 3 /hpf (0-5)
[2022-09-30 23:50] VITALS: BP 127/85; PULSE 76; RESP 16
== END 2022-10-01 00:18 | disposition home or self-care (01) ==
LOC: EC 17:47
DX: N13.2 Hydronephrosis with renal and ureteral calculous obstruction (principal); F17.200 Nicotine dependence, unspecified, uncomplicated; F12.90 Cannabis use, unspecified, uncomplicated
CPT/HCPCS: 36415; 80053; 82150; 83605; 83690; 85025; 81001; 74018; 74176; 99285; 96374; 96375 ×2; 96361 ×2; J2060; J1885; J1170